=== PATIENT | female | born 1960 | race Two or more races ===

== ENCOUNTER 2021-02-25 12:40 | Outpatient (REF) | payer OTHER, SELFPAY ==
--- NOTE | ~2021-02-25 | XR_ITS ---
EXAMINATION: XR HAND, RIGHT CLINICAL INFORMATION: Pain right hand. COMPARISON: None TECHNIQUE: PA, lateral, and oblique views of the right hand. FINDINGS: There is loss of PIP and DIP joint space all digits there is mild osteopenia. No acute fracture, dislocation or lytic process seen. The soft tissues are normal. XR/XR hand RT 2V IMPRESSION: Mild degenerative changes PIP and DIP joints of digits. No visible acute fracture or dislocation seen. There is diffuse osteopenia.
== END 2021-02-25 12:41 | disposition home or self-care (01) ==
LOC: HO.XRAY 12:40
PROVIDERS: PCP Internal Medicine; Visit Provider Internal Medicine
DX: M79.641 Pain in right hand (principal)
CPT/HCPCS: 73120

== ENCOUNTER 2021-07-30 08:49 | Emergency (ER) | payer OTHER, SELFPAY ==
--- NOTE | ~2021-07-30 | US_ITS ---
EXAMINATION: US ABDOMEN LIMITED CLINICAL INFORMATION: Right upper quadrant pain. COMPARISON: CT same day TECHNIQUE: Real-time imaging of the right upper quadrant abdominal viscera. FINDINGS: PANCREAS: The visualized portion of the pancreas head and body are normal, portion of the pancreatic body and tail, not visualized are obscured by bowel gas. LIVER: Normal. The liver is normal in size. The liver contour is normal. Parenchymal echogenicity is normal. No focal hepatic lesion. There is no intrahepatic biliary duct dilatation seen. GALLBLADDER: Physiologically distended The gallbladder is physiologically distended without evidence of stones, sludge, polyps, wall thickening or pericholecystic fluid. COMMON BILE DUCT: Normal in caliber measuring 0.2 cm in diameter. RIGHT KIDNEY: Normal. No hydronephrosis. No renal calculi or focal parenchymal lesions. The kidney measures 8.7 cm in maximum dimension. FREE FLUID: None. US/US abdomen limited IMPRESSION: Distended gallbladder probably physiologic, No ultrasound evidence of gallbladder disease or gallstones.
--- NOTE | ~2021-07-30 | CT_ITS ---
EXAMINATION: CT abdomen pelvis w con CLINICAL INFORMATION: Abdominal pain COMPARISON: No prior CT available for comparison. TECHNIQUE: Multidetector volumetric imaging was performed from the superior aspect of the liver through the pubic symphysis 85 mL Omnipaque 350 injected Sagittal and coronal reformatted images were obtained on the technologist's workstation. This CT examination was performed using dose optimization techniques as appropriate, variously including the following: *Automated exposure control *Adjustment of mA and/or kV according to patient size (this includes techniques or standardized protocols for targeted exams where dose is matched to indication/reason for exam; i.e. extremities or head) *Use of iterative reconstruction technique DLP: 750 mGy-cm FINDINGS: LOWER THORAX: Lung bases are clear. HEPATOBILIARY: No focal hepatic lesions. No biliary ductal dilatation. GALLBLADDER: Distended gallbladder SPLEEN: Spleen is normal in size. PANCREAS: No focal mass or ductal dilatation. STOMACH AND GASTROINTESTINAL TRACT: Stomach is grossly unremarkable. There is no bowel distention or thickening. No CT evidence of appendicitis. ADRENALS: No adrenal nodules. KIDNEYS/URETERS: No hydronephrosis, stones or solid mass lesions. URINARY BLADDER: Partially decompressed. PELVIC VISCERA: Unremarkable PERITONEUM: No free air or fluid. LYMPH NODES: No lymphadenopathy. VASCULAR:Abdominal aorta normal in size, no aneurysm found. BONES, ABDOMINAL WALL AND SOFT TISSUES: Age-appropriate changes of the spine and skeletal system, no destructive osteolytic or osteosclerotic bone lesion found CT/CT abdomen pelvis w con IMPRESSION: No CT explanation for patient's pain symptoms, no evidence of bowel obstruction, no free air or fluid. No CT evidence of appendicitis. Gallbladder is distended. If there is a clinical suspicion may consider correlation with ultrasound.
[2021-07-30 08:56] VITALS: BP 170/102; PULSE 94; O2SAT 100
--- NOTE | 2021-07-30 08:59 | ED_ITS ---
HPI - Abdominal Pain General Chief Complaint: Abdominal Pain Stated Complaint: llq abd pain n/v Time Seen by Provider: 07/30/21 08:50 Source: patient Mode of arrival: ambulatory Limitations: no limitations History of Present Illness HPI narrative: This is a 60-year-old female past medical history significant for GERD, hypertension, vitamin-D deficiency, iron deficiency anemia presenting to the emergency department with complaints of abdominal pain since last night. Patient tells me that she has been having severe abdominal pain since yesterday night, she tells me that she vomited twice after trying to drink water. She tells me that the abdominal pain is severe, constant and stabbing in nature. She tells me it is diffuse, but worse in the right lower quadrant. She tells me she has been unable to eat food because she has no access to food. She tells me she is homeless and living on the streets. She is tearful, and very anxious upon her arrival. She was brought in by ambulance to report that they found her at [facility]. Denies chest pain, shortness of breath, headache, diarrhea, constipation, weakness, fevers and chills. MD elicited complaint: abdominal pain Pertinent past history: none Onset (ago): day(s) (1) Pain Consistency: constant Location: diffuse Severity: severe Quality: stabbing Radiation: none Migration to: no migration Exacerbating factors: nothing Relieving factors: nothing Associated symptoms: nausea and vomiting Related Data Previous Rx's Medication Instructions Recorded cholecalciferol (vitamin D3) 25 25 mcg PO DAILY 90 Days #90 cap 05/21/20 mcg (1,000 unit) capsule triamcinolone acetonide 0.1 % 1 appl TOPICAL DAILY 30 Days #30 g 03/21/21 topical cream acetaminophen 650 mg 650 mg PO Q8H PRN 30 Days #90 tab 07/09/21 tablet,extended release (Mapap Arthritis Pain) lisinopril 10 mg tablet 10 mg PO DAILY 90 Days #90 tab 07/09/21 omeprazole 20 mg capsule,delayed 20 mg PO DAILY 90 Days #90 cap 07/09/21 release tizanidine 4 mg tablet 4 mg PO TID PRN 30 Days #90 tab 07/09/21 Allergies Allergy/AdvReac Type Severity Reaction Status Date / Time aspirin Allergy Gastrointestinal Verified 07/30/21 09:22 Upset Review of Systems Review of Systems Constitutional : No Weight loss, No Fever, No Chills ENT/Mouth :? No sore throat, No Rhinorrhea Eyes: No Swelling, No Redness Cardiovascular : No Chest Pain, No SOB, NoEdema Respiratory : No Cough, No Sputum, No Wheezing Gastrointestinal : Positive Nausea, Positive Vomiting, No Diarrhea, positive abdominal Pain, No Hematochezia, No Melena Genitourinary : No Dysuria, No Urinary Frequency, No Hematuria, No Urgency Musculoskeletal : No joint pain, No Myalgias, No Joint Swelling Skin : No Skin Lesions, No rash Neuro : No Weakness, No Numbness, No Dizziness, No Headache Psych : No Anxiety/Panic, No Depression Heme/Lymph: No Bruising, No Lymphadenopathy Endocrine : No Polyuria, No Polydipsia All other systems reviewed and are negative. Yes all other systems are reviewed and are negative Physical Exam Vital Signs: Vital Signs: Last Vital Signs Temp 97.9 F 07/30/21 09:17 Pulse 90 07/30/21 09:17 Resp 22 H 07/30/21 09:17 BP 177/84 H 07/30/21 09:17 Pulse Ox 97 07/30/21 09:17 BMI result Body Mass Index 27.1 VSS Appearance: Alert.? Oriented X3.? No acute distress.?+ patient tearful and anxious. Head: Normocephalic, atraumatic, no step-offs or deformities Eyes: Pupils equal, round and reactive to light.? ENT: Pharynx normal.? Neck: Normal inspection.? Neck supple.? CVS: Normal heart rate and rhythm.? Pulses normal.? Respiratory: No respiratory distress.? Breath sounds normal.? Abdomen: Soft and +diffuse tenderness on palpation.? Skin: Skin warm and dry.? Normal skin color.? Normal skin turgor.? Extremities: No lower extremity edema.? No calf ttp. 5/5 strength to bilateral upper and lower extremities Back: No midline tenderness, no C-spine tenderness, full range of motion, no CVA tenderness bilaterally Neuro: Oriented X 3.? No motor deficit.? No sensory deficit. Course Reevaluation(s) Reevaluation #1: Elevated white blood cell count likely reactive secondary to vomiting and dry heaving. No acute electrolyte abnormalities. COVID negative. Urine clean. CT scan could not find a reason for patient's symptoms, gallbladd er noted to be slightly thickened. Ultrasound of the right upper quadrant was ordered, which shows a thickened gallbladder, without stones. Unlikely causing patient's symptoms. Upon re-evaluation, patient is feeling much better. She is able to tolerate solids, and liquids. Zofran and fluids helped. Patient tells me she is feeling much better. At this time I feel comfortable with discharge h ome. Patient's vital signs are stable. I have advised her to return with new or worsening symptoms. Time: 14:24 MDM - Abdominal Pain MDM Narrative Medical decision making narrative: 900 60 homeless F pmhx GERD, HTN,anemia presents to ED w/ complaints of sever abdominal pain since last night, also reports vomiting X2. She denies SOB and CP. Physical examination significant for a tearful, anxious female lying on the exam table,, regular rate and rhythm, lungs clear. Diffusely tender abdomen upon palpation with normoactive bowel sounds, no distention. Plan at this time is to obtain basic labs, CT of the abdomen and pelvis, urine, and EKG Medical Records Attestation: I reviewed the patient's medical records. Lab Data Attestation: I reviewed the patient's lab results. Result diagrams: 07/30/21 09:11 07/30/21 09:11 Labs: Lab Results 07/30/21 07/30/21 07/30/21 Range/Units 09:11 09:11 09:12 WBC 11.4 H (4.8-10.8) X10*3/uL RBC 3.51 L (4.20-5.50) X10*6/uL Hgb 12.6 (12.0-16.0) g/dl Hct 36.5 L (37.0-47.0) % MCV 104.0 H (80.0-98.0) fL MCH 35.9 H (27.0-33.0) pg MCHC 34.5 (31.0-35.0) g/dl RDW 13.4 (11.0-16.0) % Plt Count 196 (160-400) X10*3/uL MPV 10.4 (9.4-12.3) fL Immature Gran % (Auto) 0.4 (0.0-0.4) % Neut % (Auto) 83.0 H (45-73) % Lymph % (Auto) 10.3 L (20-40) % [place] % (Auto) 6.0 (2-11) % Eos % (Auto) 0.0 (0-4) % Baso % (Auto) 0.3 (0-2) % Lymph # (Auto) 1.2 (1.2-4.9) X10*3/uL [place] # (Auto) 0.7 (0.1-1.2) X10*3/uL Eos # (Auto) 0.0 (0.0-0.4) X10*3/uL Baso # (Auto) 0.0 (0.0-0.2) X10*3/uL Abs Immat Gran (auto) 0.04 H (0.00-0.03) X10*3/uL Absolute Neuts (auto) 9.5 H (2.0-8.3) x10*3/uL Absolute Nucleated RBC 0.000 (0.0-0.012) X10*3/uL Nucleated RBC % (auto) 0.0 (0.0-0.2) /100WBC Sodium 138 (135-145) mmol/L Potassium 3.7 (3.3-5.1) mmol/L Chloride 102 (96-108) mmol/L Carbon Dioxide 25 (22-29) mmol/L Anion Gap 15 (12-20) BUN 11 (9-16) mg/dL Creatinine 0.80 (0.5-1.4) mg/dL Estim Creat Clear Calc 59.4 Estimated GFR > 60 Random Glucose 104 (60-115) mg/dL Calcium 9.2 (8.4-10.2) mg/dL Magnesium 1.9 (1.6-2.6) mg/dL Total Bilirubin 1.1 H (0.0-1.0) mg/dL AST 20 (5-31) U/L ALT 12 (0-31) U/L Alkaline Phosphatase 71 (39-117) U/L Total Protein 7.1 (6.5-8.0) g/dL Albumin 4.4 (3.5-5.0) g/dL Lipase 13 (8-78) U/L Beta HCG, Quant < 2 mIU/mL Urine Color Urine Appearance Urine pH (5.0-8.0) Ur Specific [place] (1.005-1.025) Urine Protein (NEG-TRACE) MG/DL Urine Glucose (UA) (NEG) MG/DL Urine Ketones (NEG) MG/DL Urine Blood (NEG) Urine Nitrite (NEG) Ur Leukocyte Esterase (NEG) Urine RBC (0) /HPF Urine WBC (0-4) /HPF Ur Squamous Epith Cells /LPF Urine Bacteria /LPF COVID-19 (CRISTIANE) Negative (Negative) COVID-19 Clin Com See Note 07/30/21 Range/Units 11:45 WBC (4.8-10.8) X10*3/uL RBC (4.20-5.50) X10*6/uL Hgb (12.0-16.0) g/dl Hct (37.0-47.0) % MCV (80.0-98.0) fL MCH (27.0-33.0) pg MCHC (31.0-35.0) g/dl RDW (11.0-16.0) % Plt Count (160-400) X10*3/uL MPV (9.4-12.3) fL Immature Gran % (Auto) (0.0-0.4) % Neut % (Auto) (45-73) % Lymph % (Auto) (20-40) % [place] % (Auto) (2-11) % Eos % (Auto) (0-4) % Baso % (Auto) (0-2) % Lymph # (Auto) (1.2-4.9) X10*3/uL [place] # (Auto) (0.1-1.2) X10*3/uL Eos # (Auto) (0.0-0.4) X10*3/uL Baso # (Auto) (0.0-0.2) X10*3/uL Abs Immat Gran (auto) (0.00-0.03) X10*3/uL Absolute Neuts (auto) (2.0-8.3) x10*3/uL Absolute Nucleated RBC (0.0-0.012) X10*3/uL Nucleated RBC % (auto) (0.0-0.2) /100WBC Sodium (135-145) mmol/L Potassium (3.3-5.1) mmol/L Chloride (96-108) mmol/L Carbon Dioxide (22-29) mmol/L Anion Gap (12-20) BUN (9-16) mg/dL Creatinine (0.5-1.4) mg/dL Estim Creat Clear Calc Estimated GFR Random Glucose (60-115) mg/dL Calcium (8.4-10.2) mg/dL Magnesium (1.6-2.6) mg/dL Total Bilirubin (0.0-1.0) mg/dL AST (5-31) U/L ALT (0-31) U/L Alkaline Phosphatase (39-117) U/L Total Protein (6.5-8.0) g/dL Albumin (3.5-5.0) g/dL Lipase (8-78) U/L Beta HCG, Quant mIU/mL Urine Color YELLOW Urine Appearance CLEAR Urine pH 6.5 (5.0-8.0) Ur Specific [place] <= 1.005 (1.005-1.025) Urine Protein NEG (NEG-TRACE) MG/DL Urine Glucose (UA) NEG (NEG) MG/DL Urine Ketones 15 (NEG) MG/DL Urine Blood NEG (NEG) Urine Nitrite NEG (NEG) Ur Leukocyte Esterase NEG (NEG) Urine RBC 0 (0) /HPF Urine WBC 0 (0-4) /HPF Ur Squamous Epith Cells NONE /LPF Urine Bacteria NONE /LPF COVID-19 (CRISTIANE) (Negative) COVID-19 Clin Com Imaging Data CT scan - abdomen: Attestation: I personally reviewed and interpreted this imaging study as follows: Radiologist's impression: CT/CT abdomen pelvis w con IMPRESSION: No CT explanation for patient's pain symptoms, no evidence of bowel obstruction, no free air or fluid. No CT evidence of appendicitis. ? Gallbladder is distended. If there is a clinical suspicion may consider correlation with ultrasound. ECG Data Attestation: I personally reviewed and interpreted this ECG as follows: ECG interpretation date: 07/30/21 ECG interpretation time: 09:27 Prior ECG tracings: available for review Interpretation: Ventricular rate of 89, NH normal, QRS normal, QT/QTC normal. EKG shows normal sinus rhythm, no ST elevations or inversions. No acute ischemia. No significant changes when compared to EKG from October 09, 2011 Critical Care Time Critical Care Time Critical Care Time: No Discharge Plan Discharge Clinical Impression: Abdominal pain, Nausea & vomiting Patient Disposition: Home, Self-Care Instructions: Acute Nausea and Vomiting (ED), Abdominal Pain (ED) Additional Instructions: Take your medications as prescribed. If you were prescribed antibiotics today, it is important that you take your medication to their entirety, do not skip any doses, do not finish them early. Follow-up with your primary care provider this week. Return to the emergency department with new or worsening symptoms. In case of emergency call 911 Prescriptions: No Action triamcinolone acetonide 0.1 % cream 1 appl topical DAILY 30 Days Qty: 30 RF: 1 cholecalciferol (vitamin D3) 25 mcg (1,000 unit) capsule 25 mcg PO DAILY 90 Days Qty: 90 RF: 3 acetaminophen [Mapap Arthritis Pain] 650 mg tablet extended release 650 mg PO Q8H PRN (Reason: pain) 30 Days Qty: 90 RF: 3 lisinopril 10 mg tablet 10 mg PO DAILY 90 Days Qty: 90 RF: 1 omeprazole 20 mg capsule,delayed release(DR/EC) 20 mg PO DAILY 90 Days Qty: 90 RF: 3 tizanidine 4 mg tablet 4 mg PO TID PRN (Reason: muscle spasticity) 30 Days Qty: 90 RF: 0 Referrals: Jeni Berg MD [Primary Care Provider] - 2 days [facility] Past Medical History Attestation statement: The following information was validated with the patient. Source: old records reviewed and nursing notes reviewed Medical History (Updated 07/30/21 @ 14:25 by HAMILTON Rahman) GERD (gastroesophageal reflux disease) Hypertension Hypovitaminosis D Iron deficiency anemia Osteopenia Right hand pain Surgical History History of total abdominal hysterectomy Family History Family History Father No problems noted. Mother Breast cancer Diabetes Brother Myocardial infarction Social History Social History (Updated 11/23/20 @ 14:11 by Jeni Estrada MD) Housing: Apartment Alcohol intake: current Alcohol intake frequency: 3 or more drinks per day Alcohol type: beer Patient Tobacco Use Status: Current everyday Tobacco user Tobacco use type: Cigarette Cigarettes Per Day: 1 e-Cigarette/Vaping Use: Never Used Second Hand Smoke Exposure: No Advance Directives: No Advance Directives Information Provided: Yes Current occupational status: unemployed
--- NOTE | 2021-07-30 09:03 | ECG_ITS ---
Test Reason : abdominal pain Blood Pressure : / mmHG Vent. Rate : 089 BPM Atrial Rate : 089 BPM P-R Int : 136 ms QRS Dur : 076 ms QT Int : 364 ms P-R-T Axes : 054 064 052 degrees QTc Int : 442 ms Normal sinus rhythm Normal ECG When compared with ECG of 09-OCT-2011 09:10, No significant change was found Referred By: Froilan Cui Electronically Signed By:Shad Basilio
[2021-07-30] MEDS: 0.9 % Sodium Chloride 1,000 ML 999 ML IV (09:13)
[2021-07-30] MEDS: ondansetron HCL 4 MG/2 ML VIAL IVPUSH (09:16)
[2021-07-30 09:17] VITALS: BP 177/84; PULSE 90; RESP 22; TEMP 36.6; O2SAT 97; BMI 27.1
[2021-07-30 09:18] LABS: MANUAL DIFF FLAG NO
[2021-07-30 09:20] LABS: Basophils Percent Auto 0.3 % (0-2); Hematocrit 36.5 % (37.0-47.0); Hemoglobin 12.6 g/dl (12.0-16.0); Imm Gran Abs Auto 0.04 X10*3/uL (0.00-0.03); Imm Gran Pct Auto 0.4 % (0.0-0.4); Lymphocytes Absolute Auto 1.2 X10*3/uL (1.2-4.9); Lymphocytes Percent Auto 10.3 % (20-40); Mean Corpuscular HGB Conc 34.5 g/dl (31.0-35.0); Mean Corpuscular Hemoglobin 35.9 pg (27.0-33.0); Mean Platelet Volume 10.4 fL (9.4-12.3); Monocytes Absolute Auto 0.7 X10*3/uL (0.1-1.2); Neutrophils Absolute Auto 9.5 x10*3/uL (2.0-8.3); Platelet Count 196 X10*3/uL (160-400); Red Blood Count 3.51 X10*6/uL (4.20-5.50); Red Cell Distribution Width 13.4 % (11.0-16.0); White Blood Count 11.4 X10*3/uL (4.8-10.8)
--- NOTE | 2021-07-30 09:24 | PC.NURSE ---
Pt received: Pt AOX4 with noted anxiety and nervousness. Amharic speaker only. Heart sounds normal and lungs clear. Pt abd soft with tenderness to mid and LLQ. Pt denies any fever or dysuria.
[2021-07-30 09:35] LABS: Alanine Aminotransferase 12 U/L (0-31); Albumin Level 4.4 g/dL (3.5-5.0); Alkaline Phosphatase 71 U/L (39-117); Anion Gap 15 (12-20); Aspartate Amino Transferase 20 U/L (5-31); Bilirubin Total 1.1 mg/dL (0.0-1.0); Blood Urea Nitrogen 11 mg/dL (9-16); Calcium 9.2 mg/dL (8.4-10.2); Carbon Dioxide 25 mmol/L (22-29); Chloride 102 mmol/L (96-108); Creatinine Clr Calc Pharmacy 59.4; Estimated Glomerular Filt Rate > 60; Glucose Random 104 mg/dL (60-115); Lipase 13 U/L (8-78); Magnesium 1.9 mg/dL (1.6-2.6); Potassium 3.7 mmol/L (3.3-5.1); Sodium 138 mmol/L (135-145); Total Protein 7.1 g/dL (6.5-8.0)
[2021-07-30 09:42] LABS: COVID-19 Test Negative (Negative)
--- NOTE | 2021-07-30 09:48 | PC.NURSE ---
Pt's son Marin: [phone] Pt lives at home with
--- NOTE | 2021-07-30 10:01 | PC.NURSE ---
pt to CT with con
[2021-07-30 10:21] LABS: HCG Quantitative < 2 mIU/mL
[2021-07-30] MEDS: iohexoL 350 MG/ML 100 ML INFUS..BTL IV (10:33)
[2021-07-30 11:52] LABS: Appearance Urine CLEAR; Color Urine YELLOW; Glucose Urine UA NEG (NEG); Leukocyte Esterase Urine NEG (NEG); Nitrite Urine NEG (NEG); PH 6.5 (5.0-8.0); Specific Gravity - Urine <= 1.005 (1.005-1.025); Urine Blood NEG (NEG); Urine Ketones 15 MG/DL (NEG); Urine Protein NEG (NEG-TRACE)
[2021-07-30 11:57] LABS: RBC Urine 0 /HPF (0); WBC Urine 0 /HPF (0-4)
== END 2021-07-30 15:00 | disposition home or self-care (01) ==
PROVIDERS: Physician Assistant; Emergency Provider Emergency Medicine; PCP Internal Medicine
DX: R10.9 Unspecified abdominal pain (principal); R11.2 Nausea with vomiting, unspecified; Z20.822 Contact with and (suspected) exposure to COVID-19; I10 Essential (primary) hypertension; F17.200 Nicotine dependence, unspecified, uncomplicated
CPT/HCPCS: 36415; 74177; 76705; 80053; 81001; 83690; 83735; 84702; 85025; 87635; 93005; 96361; 96374; 99284; J2405; Q9967

== ENCOUNTER 2022-10-26 15:33 | Emergency (ER) | payer OTHER, SELFPAY ==
[2022-10-26 15:45] VITALS: BP 176/124; BP 181/99; PULSE 108; RESP 18; TEMP 36.6; O2SAT 96; BMI 29.2
--- NOTE | 2022-10-26 16:02 | PC.NURSE ---
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
--- NOTE | 2022-10-26 16:44 | PC.NURSE ---
Verified with patient if it was ok spoke with patients son Chadwick Funes and updated him with plan of care
--- NOTE | 2022-10-26 16:51 | PC.NURSE ---
Patient sleeping maintaining airway and SPO2 will CTM
--- NOTE | 2022-10-26 17:32 | ED_ITS ---
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 Patient was apparently found in a lawn chair unresponsive. She was given Narcan 6 mg nasally and reportedly responded and arrives to the ER awake, alert and oriented. The patient states that she was drinking alcohol but does not use opiates or any other kind of drugs. At the time my evaluation she has no complaints She also states that she is not prescribed any narcotics for an accidental overdose. Related Data Previous Rx's Medication Instructions Recorded cholecalciferol (vitamin D3) 25 25 mcg PO DAILY 90 days #90 caps 05/21/20 mcg (1,000 unit) capsule triamcinolone acetonide 0.1 % 1 appl topical DAILY 30 days #30 03/21/21 topical cream grams acetaminophen 650 mg 650 mg PO Q8H PRN pain 30 days #90 07/09/21 tablet,extended release (Mapap tabs Arthritis Pain) lisinopril 10 mg tablet 10 mg PO DAILY 90 days #90 tabs 07/09/21 omeprazole 20 mg capsule,delayed 20 mg PO DAILY 90 days #90 caps 07/09/21 release tizanidine 4 mg tablet 4 mg PO TID PRN muscle spasticity 07/09/21 30 days #90 tabs Allergies Allergy/AdvReac Type Severity Reaction Status Date / Time aspirin Allergy Gastrointestinal Verified 07/30/21 09:22 Upset Review of Systems Constitutional: Constitutional: Reports as per HPI, Denies chills, Denies fatigue, Denies fever(s) and Denies headache(s) ENT: Denies headache(s) Cardiovascular: Cardiovascular: Denies chest pain and Denies dyspnea Respiratory: Respiratory: Denies cough and Denies dyspnea Gastrointestinal: Gastrointestinal: Denies abdominal pain, Denies constipation and Denies vomiting Genitourinary: Genitourinary: Denies dysuria Neurologic: Denies headache(s) and Denies focal weakness Endocrine: Endocrine: Denies fatigue [facility] Past Medical History Medical History (Updated 10/27/22 @ 00:01 by Background Daemon) GERD (gastroesophageal reflux disease) Hypertension Hypovitaminosis D Iron deficiency anemia Osteopenia Right hand pain Surgical History History of total abdominal hysterectomy Family History Family History Father No problems noted. Mother Breast cancer Diabetes Brother Myocardial infarction Social History Social History (Updated 11/23/20 @ 14:11 by Jeni Estrada MD) Housing: Apartment Alcohol intake: current Alcohol intake frequency: 3 or more drinks per day Alcohol type: beer Patient Tobacco Use Status: Current everyday Tobacco user Tobacco use type: Cigarette Cigarettes Per Day: 1 e-Cigarette/Vaping Use: Never Used Second Hand Smoke Exposure: No Advance Directives: No Advance Directives Information Provided: No Current occupational status: unemployed Physical Exam ED Vital Signs: Vital Signs - 24 hr 10/26/22 15:45 10/26/22 17:33 Temperature 97.9 F 98.1 F Pulse Rate 108 H 84 Respiratory Rate 18 14 Blood Pressure 181/99 H 157/94 H Pulse Oximetry 96 99 Oxygen Delivery Method Room Air Room Air BMI result Body Mass Index 29.2 Const General: healthy appearing, comfortable, no acute distress, alert and awake Nutritional Appearance: well nourished Orientation/consciousness: patient oriented x3 HENMT Head: Yes normocephalic and Yes atraumatic Throat: Yes posterior oropharynx normal Eyes Eyelids: Yes eyelids normal Conjunctivae: conjunctivae normal Sclerae: sclerae normal Corneas: corneas normal Pupils: Equal, round and reactive pupils present EOM: EOMs intact bilaterally Neck Neck: Yes full ROM Resp Effort & Inspection: normal respiratory effort, able to speak in complete sente nces, no audible wheezes and not labored Auscultation: clear to auscultation bilaterally Cardio Rate: regular rate Rhythm: regular rhythm GI Inspection: No distended Palpation (GI): Soft to palpation, not firm, nontender, no guarding and not rigid Auscultation: normoactive bowel sounds Skin General skin exam: no rashes or lesions noted and elasticity normal Neuro General: patient oriented x3 Cranial nerves: Yes CN's II-XII intact bilaterally, Yes Equal, round and reactive pupils present and Yes Bilaterally intact EOM present Cognition (Neuro): normal cognition Extrem Other: Moving all extremities well without any obvious deformities Medical Decision Making Medical Decision Making MDM Narrative: Patient is wide awake, alert oriented. She is answering questions and responding to commands appropriately. She is neurologically intact without deficit. She has required no further Narcan. Vital signs have normalized without intervention. She was initially slightly hypertensive and tachycardic on arrival. She was also quite hysterical on arrival. The patient vehemently denies any opiate abuse in her prescription monitoring program confirms that she is not prescribed any opiates. I offered to get a drug screen to see if there are any opiates in the patient's system though she responded to the Narcan she likely had an external overdose. The patient declines to provide a urine sample and would like to be discharged into the care of her boyfriend. She has been the ER for approximately 2 hours and is stable for discharge at this time. Lungs are clear to auscultation the patient denies any shortness of breath or coughing. IV low suspicion for aspiration Differential Diagnosis Substance abuse Polysubstance abuse Acute alcohol intoxication Accidental overdose CVA less likely Discharge Plan Discharge Clinical Impression: Opioid abuse Patient Disposition: Home, Self-Care Instructions: Opioid Use Disorder (ED) Additional Instructions: He responded to a medication that reverses opiates after being found unresponsive. This indicates that there likely opiates in your system. If you're drinking alcohol, drink in moderation and avoid, coingestion of opiates Prescriptions: No Action triamcinolone acetonide 0.1 % cream 1 appl topical DAILY 30 Days Qty: 30 1RF cholecalciferol (vitamin D3) 25 mcg (1,000 unit) capsule 25 mcg PO DAILY 90 Days Qty: 90 3RF acetaminophen [Mapap Arthritis Pain] 650 mg tablet extended release 650 mg PO Q8H PRN (Reason: pain) 30 Days Qty: 90 3RF lisinopril 10 mg tablet 10 mg PO DAILY 90 Days Qty: 90 1RF omeprazole 20 mg capsule,delayed release(DR/EC) 20 mg PO DAILY 90 Days Qty: 90 3RF tizanidine 4 mg tablet 4 mg PO TID PRN (Reason: muscle spasticity) 30 Days Qty: 90 0RF Interventions: [place]-Suicide Risk Severity Scale Last Done: 10/26/22 18:27 ED Discharge Assessment Last Done: 10/26/22 17:49 Discharge Date/Time: 10/26/22 18:27
[2022-10-26 17:33] VITALS: BP 157/94; PULSE 84; RESP 14; TEMP 36.7; O2SAT 99
== END 2022-10-26 18:27 | disposition home or self-care (01) ==
PROVIDERS: Emergency Provider Emergency Medicine; PCP Internal Medicine
DX: F11.10 Opioid abuse, uncomplicated (principal); I10 Essential (primary) hypertension; F17.210 Nicotine dependence, cigarettes, uncomplicated; Z71.6 Tobacco abuse counseling; Z79.899 Other long term (current) drug therapy
CPT/HCPCS: 99283; 99284

== ENCOUNTER 2023-03-27 14:52 | Outpatient (AMB) | payer OTHER, SELFPAY ==
[2023-03-27 14:57] VITALS: BP 142/100; BMI 24.4
--- NOTE | 2023-03-27 14:57 | MHC.PC.OV ---
Vital Signs 03/27/23 14:57 03/27/23 15:30 Height 5 ft 3 in Weight 138 lb BMI 24.4 BP 142/100 H 140/100 H Blood Pressure Location Lt brachial Lt brachial Position Sitting Sitting Intake Visit Reasons: F/u HTN, GERD Intake Note: Patient here for follow up HTN, GERD, c/o hemorrhoids, dizziness, abdominal discomfort, migraines, asthma [place] Supervisor Required: No Accompanied by: Self / Same As Patient Allergies aspirin Allergy (Verified 03/27/23 15:11) Gastrointestinal Upset Medication List - Last Reconciled 03/27/23 by Jeni Estrada MD blood pressure monitor (Blood Pressure Kit) As directed cholecalciferol (vitamin D3) 25 mcg PO DAILY 90 days lisinopril 10 mg PO DAILY 90 days omeprazole 20 mg PO DAILY 90 days tizanidine 2 mg PO Q8H PRN Tobacco use date assessed: 11/22/22 Dental Screening Dental Screen Date: 03/27/23 Did you have a dental visit in the last 12 months?: No Did you have a dental problem in the last 6 months where you did not have access to dental care?: No Was dental information given to patient?: Patient has dentist HPI HPI Comments History of Present Illness Details This is a 62-year-old female with GERD, hypertension, asthma and low vitamin-D that comes today for follow-up on her conditions. GERD was stable with PPIs but she ran out of medication. Blood pressure elevated and she has been out of lisinopril for over 2 weeks. She use rescue inhaler about once a month. Has history of low vitamin-D and vitamin-D levels will be order. No chest pain or shortness of breath. [facility] Medical History GERD (gastroesophageal reflux disease) Hypertension Hypovitaminosis D Iron deficiency anemia Osteopenia Right hand pain Surgical History History of total abdominal hysterectomy Family History (Updated 03/27/23 @ 15:16 by Jeni Estrada MD) Father Prostate cancer Mother Breast cancer Diabetes Stroke Brother Myocardial infarction Daughter AIDS Social History (Updated 03/27/23 @ 15:17 by Jeni Estrada MD) Housing: Apartment Alcohol intake: current Alcohol intake frequency: a few times a week Alcohol type: beer Patient Tobacco Use Status: Current someday Tobacco user Tobacco use type: Cigarette Cigarettes Per Day: 1 e-Cigarette/Vaping Use: Never Used Second Hand Smoke Exposure: No service: No Current occupational status: unemployed Cognitive needs: No Hearing needs: No Vision needs: No Questionnaire Thrive Questionnaire Date Thrive assessed: 11/22/22 NEIDA-7 AMB Questionnaire NEIDA-7 Date NEIDA - 7 assessed: 11/22/22 Source: Developed by Drs. Omar Muro, Yohana Massey, Panda Michelle and colleagues, with an educational elza from [employer]. Review of Systems Const All systems reviewed & are unremarkable except as noted in HPI and below Eyes Reports no additional complaints, Denies change in vision and Denies other visual disturbances Card Denies chest pain at rest, Denies chest pain with activity, Denies edema, Denies irregular heart rhythm, Denies claudication, Denies dyspnea, Denies dyspnea on exertion, Denies orthopnea, Denies paroxysmal nocturnal dyspnea and Denies slow heart rate Resp Denies cough, Denies dyspnea and Denies dyspnea on exertion GI Denies abdominal pain, Denies change in bowel habits, Denies excessive flatus, Denies nausea and Denies vomiting Denies urinary incontinence, Denies urinary hesitancy and Denies urinary urgency Musc Denies abnormal gait, Denies atrophy, Denies deformity and Denies limited range of motion Skin/Breast Denies bleeding lesions, Denies changing lesions and Denies rash Neuro Denies abnormal gait and Denies lack of coordination Physical exam (Primary Care) Vital Signs: Last Vital Signs BP 142/100 H 03/27/23 14:57 BMI result Body Mass Index 24.4 Tobacco/Smoking Status: Tobacco use Status Tobacco use date assessed 11/22/22 03/27/23 15:04 Patient Tobacco Use Status Current someday Tobacco 03/27/23 15:04 Tobacco use type Cigarette 03/27/23 15:04 e-Cigarette/Vaping Use Never Used 03/27/23 15:04 Thrive Assessment: Date of Thrive Assessment Date Thrive assessed 11/22/22 03/27/23 15:04 Eyes General: appearance normal, both eyes and all related structures Eyelids: Yes eyelids normal Conjunctivae: conjunctivae normal Neck Neck: Yes normal visual inspection and Yes supple Resp Effort & Inspection: normal respiratory effort Auscultation: clear to auscultation bilaterally Cardio Jugular venous distension: no JVD Rate: regular rate Rhythm: regular rhythm Heart sounds: S1 normal heart sound present and S2 normal heart sound present Extrem General: Yes full ROM Assessment and Plan Assessment & Plan (1) Asthma: Code(s): J45.909 - Unspecified asthma, uncomplicated Plan: Use rescue inhaler as needed. (2) GERD (gastroesophageal reflux disease): Code(s): K21.9 - Gastro-esophageal reflux disease without esophagitis Plan: Restart PPIs. (3) Hypertension: Code(s): I10 - Essential (primary) hypertension Plan: Restart lisinopril. Blood pressure goal is equal or less than 130/80. (4) Hypovitaminosis D: Code(s): E55.9 - Vitamin D deficiency, unspecified Plan: Restart vitamin-D. Orders: Orders MM screening mammo BI Today Z12.31 - Encounter for screening mammogram for malignant neoplasm of breast Hepatitis C Antibody Today Z11.59 - Encounter for screening for other viral diseases HIV Ab/Ag Today Z53.20 - Procedure and treatment not carried out because of patient's decision for unspecified reasons Comprehensive [place]. Panel Fast Today I10 - Essential (primary) hypertension Lipid Panel Today I10 - Essential (primary) hypertension Vitamin D 25-OH Total Today E55.9 - Vitamin D deficiency, unspecified Medications: Refilled cholecalciferol (vitamin D3) 25 mcg PO DAILY 90 days 90 caps 3RF lisinopril 10 mg PO DAILY 90 days 90 tabs 1RF omeprazole 20 mg PO DAILY 90 days 90 caps 1RF Coding Level of Care Code Est Pt Level 4 (79786) Diagnoses Asthma J45.909 GERD (gastroesophageal reflux disease) K21.9 Hypertension I10 Hypovitaminosis D E55.9 Time Spent (min) 22
[2023-03-27 15:30] VITALS: BP 140/100
== END 2023-03-27 15:41 | disposition home or self-care (01) ==
PROVIDERS: Visit Provider Internal Medicine
DX: J45.909 Unspecified asthma, uncomplicated (principal); K21.9 Gastro-esophageal reflux disease without esophagitis; I10 Essential (primary) hypertension; E55.9 Vitamin D deficiency, unspecified
CPT/HCPCS: 99214

== ENCOUNTER 2023-12-12 14:27 | Emergency (ER) | payer OTHER, SELFPAY ==
[2023-12-12 14:57] VITALS: BP 160/82; PULSE 70; RESP 18; TEMP 35.9; O2SAT 99; BMI 32.8
--- NOTE | 2023-12-12 20:27 | ED.GENADULT ---
HPI - General Adult General Chief complaint: Allergic Reaction Stated complaint: Rash All Over Body History of Present Illness HPI narrative: Left without completion of treatment Related Data Previous Rx's ?Medication ?Instructions ?Recorded blood pressure monitor (Blood #1 ea 11/22/22 Pressure Kit) tizanidine 2 mg tablet 2 mg PO Q8H PRN muscle spasticity 12/27/22 #14 tabs Ventolin HFA 90 mcg/actuation 2 puff inhalation Q6H PRN 03/27/23 aerosol inhaler (albuterol sulfate) shortness of breath or wheezing 30 days #8 grams cholecalciferol (vitamin D3) 25 25 mcg PO DAILY 90 days #90 caps 03/27/23 mcg (1,000 unit) capsule lisinopril 10 mg tablet 10 mg PO DAILY 90 days #90 tabs 03/27/23 omeprazole 20 mg capsule,delayed 20 mg PO DAILY 90 days #90 caps 03/27/23 release diphenhydramine HCl 25 mg capsule 25 mg PO TID PRN allergic reaction 12/12/23 (Benadryl) 7 days #21 caps famotidine 20 mg tablet (Pepcid) 20 mg PO BID 7 days #14 tabs 12/12/23 prednisone 20 mg tablet 40 mg (2 x 20 mg) PO DAILY 5 days 12/12/23 #10 tabs Allergies Allergy/AdvReac Type Severity Reaction Status Date / Time aspirin Allergy Gastrointestinal Verified 12/12/23 15:03 Upset PMFSH Past Medical History Medical History GERD (gastroesophageal reflux disease) Hypertension Hypovitaminosis D Iron deficiency anemia Osteopenia Right hand pain Surgical History History of total abdominal hysterectomy Family History Family History (Updated 03/27/23 @ 15:16 by Jeni Estrada MD) Father Prostate cancer Mother Breast cancer Diabetes Stroke Brother Myocardial infarction Daughter AIDS Social History Social History (Updated 03/27/23 @ 15:17 by Jeni Estrada MD) Housing: Apartment Alcohol intake: current Alcohol intake frequency: a few times a week Alcohol type: beer Patient Tobacco Use Status: Current someday Tobacco user Tobacco use type: Cigarette Cigarettes Per Day: 1 e-Cigarette/Vaping Use: Never Used Second Hand Smoke Exposure: No Advance Directives: No Advance Directives Information Provided: No Do you have a plan to hurt others: No Plan service: No Current occupational status: unemployed Cognitive needs: No Hearing needs: No Vision needs: No Physical Exam ED Vital Signs: Vital Signs - 24 hr 12/12/23 14:57 Temperature 96.7 F L Pulse Rate 70 Respiratory Rate 18 Blood Pressure 160/82 H Pulse Oximetry 99 Oxygen Delivery Method Room Air BMI result Body Mass Index 32.8 Course Course Course Narrative: RME; triage by HAMILTON Schultz. Patient is sttes for chronic itchy rash for 1 week since starting Ambien. Patient denies any shortness of breath. Lungs were clear. Negative for swelling of lips, uvula, or face. Patient has generalized uticaria rash. Patient states also rectal bleeding states history of hemorrhoids. Not in distress. Patient informed need to be seen [facility] for rectal exam and possible labs. Patient states necessity also for allergic reaction medication. Discharge Plan Discharge Clinical Impression: Allergic reaction Patient Disposition: Left W/O Completing Treatment Additional Instructions: LEFT BEFORE COMPLETION OF TREATMENT. Prescriptions: New diphenhydramine HCl [Benadryl] 25 mg capsule 25 mg PO TID PRN (Reason: allergic reaction) 7 Days Qty: 21 0RF prednisone 20 mg tablet 40 mg PO DAILY 5 Days Qty: 10 0RF famotidine [Pepcid] 20 mg tablet 20 mg PO BID 7 Days Qty: 14 0RF No Action tizanidine 2 mg tablet 2 mg PO Q8H PRN (Reason: muscle spasticity) Qty: 14 0RF cholecalciferol (vitamin D3) 25 mcg (1,000 unit) capsule 25 mcg PO DAILY 90 Days Qty: 90 3RF lisinopril 10 mg tablet 10 mg PO DAILY 90 Days Qty: 90 1RF omeprazole 20 mg capsule,delayed release(DR/EC) 20 mg PO DAILY 90 Days Qty: 90 1RF albuterol sulfate [Ventolin HFA] 90 mcg/actuation HFA aerosol inhaler 2 puff inhalation Q6H PRN (Reason: shortness of breath or wheezing) 30 Days Qty: 8 2RF (DME) blood pressure monitor [Blood Pressure Kit] Kit See Rx Instructions .Route Qty: 1 0RF Rx Instructions: As directed Discharge Date/Time: 12/12/23 20:32
== END 2023-12-12 20:32 | disposition left against medical advice (07) ==
PROVIDERS: Emergency Provider Emergency Medicine; PCP Internal Medicine
DX: R21 Rash and other nonspecific skin eruption (principal); T78.40XA Allergy, unspecified, initial encounter; X58.XXXA Exposure to other specified factors, initial encounter
CPT/HCPCS: 99281; 99283

== ENCOUNTER 2023-12-13 08:35 | Outpatient (AMB) | payer OTHER, SELFPAY ==
--- NOTE | 2023-12-13 08:38 | MHC.PC.OV ---
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 Accompanied by: Self / Same As Patient Allergies aspirin Allergy (Verified 12/13/23 08:51) Gastrointestinal Upset Medication List - Last Reconciled 12/13/23 by Jeni Estrada MD blood pressure monitor (Blood Pressure Kit) As directed cholecalciferol (vitamin D3) 25 mcg PO DAILY 90 days diphenhydramine HCl (Benadryl) 25 mg PO TID PRN 7 days famotidine (Pepcid) 20 mg PO BID 7 days lisinopril 10 mg PO DAILY 90 days omeprazole 20 mg PO DAILY 90 days prednisone 40 mg (2 x 20 mg) PO DAILY 5 days Ventolin HFA 90 mcg/actuation (albuterol sulfate) 2 puffs inhalation Q6H PRN 30 days NS Tobacco use date assessed: 12/13/23 Dental Screening Dental Screen Date: 12/13/23 Did you have a dental visit in the last 12 months?: No Did you have a dental problem in the last 6 months where you did not have access to dental care?: No Was dental information given to patient?: Patient has dentist HPI HPI Comments History of Present Illness Details This is a 63-year-old female with hypertension, GERD and low vitamin-D that complains of a diffuse maculopapular pruritic rash has been present for about 2 weeks. She still only 1 in her household that has this rash. I will prescribe prednisone and hydroxyzine for the itchiness. Blood pressure elevated but she has been out of lisinopril. Blood pressure will be recheck in 3 weeks by nurse navigator. GERD stable with PPIs. On vitamin-D supplements for her low vitamin-D. [facility] Medical History (Updated 12/13/23 @ 09:20 by Jeni Estrada MD) Osteopenia GERD (gastroesophageal reflux disease) Hypertension Hypovitaminosis D Iron deficiency anemia Right hand pain Surgical History History of total abdominal hysterectomy Family History Father Prostate cancer Mother Breast cancer Diabetes Stroke Brother Myocardial infarction Daughter AIDS Social History Housing: Apartment Alcohol intake: current Alcohol intake frequency: a few times a week Alcohol type: beer Patient Tobacco Use Status: Current someday Tobacco user Tobacco use type: Cigarette Cigarettes Per Day: 1 e-Cigarette/Vaping Use: Never Used Second Hand Smoke Exposure: No service: No Current occupational status: unemployed Cognitive needs: No Hearing needs: No Vision needs: No Questionnaire PHQ-9 Over the last 2 weeks, how often have you been bothered by any of the following problems? 1. Little interest or pleasure in doing things: more than half the days 2. Feeling down, depressed, or hopeless: more than half the days 3. Trouble falling or staying asleep, or sleeping too much: more than half the days 4. Feeling tired or having little energy: nearly every day 5. Poor appetite or overeating: several days 6. Feeling bad about yourself - or that you are a failure or have let yourself or your family down: several days 7. Trouble concentrating on things, such as reading the newspaper or watching television: several days 8. Moving or speaking so slowly that other people could have noticed. Or the opposite - being so fidgety or restless that you have been moving around a lot more than usual: not at all 9. Thoughts that you would be better off or of hurting yourself in some way: several days Total score: 13 Depression Screening Interpretation: Positive Depression Screening Follow-up: Existing condition and Community Mental Health Worker F/U Depression Screening Done: Yes 47643 - PHQ-9 Billing: Yes Source: Developed by Drs. Omar Muro, Yohana Massey, Panda Michelle and colleagues, with an educational elza from [employer]. Thrive Questionnaire Date Thrive assessed: 12/13/23 I am a: Patient What is your living situation today?: I have a steady place to live Within the past 12 months, did the food you bought not last and you didn't have the money to get more?: Never true Within the past 12 months, did you worry whether your food would run out before you got money to buy more?: Never true Do you have trouble paying for medicines?: No Do you have trouble getting transportation to medical appointments?: No Do you have trouble paying your heating and electricity bill?: No Do you have trouble taking care of your child, family member or friend?: No Do you have trouble with day-to-day activities such as bathing, preparing meals, shopping, managing finances, etc.?: No Are you currently unemployed and looking for a job?: No Are you interested in more education?: No Please select the resources that you would like help with: None Currently or been in a relationship where the following occur: no concerns reported THRIVE Score: 0 AUDIT C Alcohol Use Questionnaire (AUDIT-C) 1. How often do you have a drink containing alcohol?: 2-3 times a week 2. How many drinks containing alcohol do you have on a typical day when you are drinking?: 3 or 4 Total Score: 4 NEIDA-7 AMB Questionnaire NEIDA-7 Date NEIDA - 7 assessed: 12/13/23 Feeling nervous, anxious, or on edge: 1 = Several days Not being able to stop or control worryin = Several days Worrying too much about different things: 1 = Several days Trouble relaxin = Several days Being so restless that it is hard to sit still: 0 = Not at all Becoming easily annoyed or irritable: 1 = Several days Feeling afraid as if something awful might happen: 1 = Several days Total NEIDA-7 score (0-4 normal; 5-9 mild; 10-14 moderate; 15-21 severe): 6 Source: Developed by Drs. Omar Muro, Yohana Massey, Panda Michelle and colleagues, with an educational elza from [employer]. NEIDA-7 Assessment Billing NEIDA-7 Assessment Tool: NEIDA-7 Assessment 12104 Review of Systems Const All systems reviewed & are unremarkable except as noted in HPI and below Eyes Reports no additional complaints, Denies change in vision and Denies other visual disturbances Card Denies chest pain at rest, Denies chest pain with activity, Denies edema, Denies irregular heart rhythm, Denies claudication, Denies dyspnea, Denies dyspnea on exertion, Denies orthopnea, Denies paroxysmal nocturnal dyspnea and Denies slow heart rate Resp Denies cough, Denies dyspnea and Denies dyspnea on exertion Skin/Breast Reports rash Physical exam (Primary Care) Vital Signs: Last Vital Signs BP 146/84 H 12/13/23 08:41 BMI result Body Mass Index 33.5 Tobacco/Smoking Status: Tobacco use Status Tobacco use date assessed 12/13/23 12/13/23 08:48 Patient Tobacco Use Status Current someday Tobacco 12/13/23 08:48 Tobacco use type Cigarette 12/13/23 08:48 e-Cigarette/Vaping Use Never Used 12/13/23 08:48 PHQ-9: PHQ-9 Score PHQ-9: Total score 13 12/13/23 08:55 Depression Screening Interpretation: Positive Depression Screening Follow-up: Existing condition and Community Mental Health Worker F/U Thrive Assessment: Date of Thrive Assessment Date Thrive assessed 12/13/23 12/13/23 08:48 Currently or been in a relationship where the following occur: no concerns reported Resp Effort & Inspection: normal respiratory effort Auscultation: clear to auscultation bilaterally Cardio Jugular venous distension: no JVD Rate: regular rate Rhythm: regular rhythm Heart sounds: S1 normal heart sound present and S2 normal heart sound present Skin Rashes: rashes noted maculopapular rash diffuse full body Extrem General: Yes full ROM Assessment and Plan Assessment & Plan (1) Hypertension: Code(s): I10 - Essential (primary) hypertension Plan: Restart lisinopril. Blood pressure goal is equal or less than 130/80. Recheck blood pressure with nurse navigator in 3 weeks. (2) GERD (gastroesophageal reflux disease): Code(s): K21.9 - Gastro-esophageal reflux disease without esophagitis Plan: Continue PPIs as needed. (3) Hypovitaminosis D: Code(s): E55.9 - Vitamin D deficiency, unspecified Plan: Continue vitamin-D supplements. (4) Rash: Code(s): R21 - Rash and other nonspecific skin eruption Plan: Start prednisone and hydroxyzine. Medications: New hydroxyzine HCl 25 mg PO BID PRN 60 tabs 0RF itching 30 days hydrocortisone 1% (Anti-Itch (hydrocortisone)) 1 appl topical TID PRN 28.4 grams 0RF skin irritation 2 weeks Refilled lisinopril 10 mg PO DAILY 90 tabs 1RF 90 days cholecalciferol (vitamin D3) 25 mcg PO DAILY 90 caps 3RF 90 days prednisone 40 mg (2 x 20 mg) PO DAILY 10 tabs 0RF 5 days Ventolin HFA 90 mcg/actuation (albuterol sulfate) 2 puffs inhalation Q6H PRN 8 grams 2RF shortness of breath or wheezing 30 days NS J45.909 - Unspecified asthma, uncomplicated omeprazole 20 mg PO DAILY 90 caps 1RF 90 days Coding Level of Care Code Est Pt Level 4 (18647) Diagnoses Hypertension I10 GERD (gastroesophageal reflux disease) K21.9 Hypovitaminosis D E55.9 Rash R21 Additional Codes NEIDA-7 Assessment Billing - NEIDA-7 Assessment Tool: NEIDA-7 Assessment 37966 ([id number]) Time Spent (min) 23
[2023-12-13 08:41] VITALS: BP 146/84; BMI 33.5
== END 2023-12-13 09:00 | disposition home or self-care (01) ==
PROVIDERS: PCP Internal Medicine; Visit Provider Internal Medicine
DX: I10 Essential (primary) hypertension (principal); K21.9 Gastro-esophageal reflux disease without esophagitis; E55.9 Vitamin D deficiency, unspecified; R21 Rash and other nonspecific skin eruption
CPT/HCPCS: 99214

== ENCOUNTER 2023-12-30 21:15 | Emergency (ER) | payer OTHER, SELFPAY ==
--- NOTE | 2023-12-30 | ECG_ITS ---
Test Reason : HYPERTENTION Blood Pressure : / mmHG Vent. Rate : 072 BPM Atrial Rate : 072 BPM P-R Int : 146 ms QRS Dur : 076 ms QT Int : 410 ms P-R-T Axes : 059 052 055 degrees QTc Int : 448 ms Normal sinus rhythm Normal ECG When compared with ECG of 30-JUL-2021 09:27, No significant change was found Referred By: Generic ED Physician Electronically Signed By:YUSEF MENDOZA
--- NOTE | ~2023-12-30 | CT_ITS ---
EXAMINATION: CT ABDOMEN AND PELVIS WITH CONTRAST CLINICAL INFORMATION: Right upper quadrant pain. Epigastric pain. COMPARISON: 07/30/2021 TECHNIQUE: Multidetector volumetric images were obtained from the superior aspect of the liver through the pubic symphysis following administration 85 mL of Omnipaque 350 intravenous contrast. Sagittal and coronal reformatted images were obtained on the technologist's workstation. Oral contrast: No This CT examination was performed using dose optimization techniques as appropriate, variously including the following: *Automated exposure control *Adjustment of mA and/or kV according to patient size (this includes techniques or standardized protocols for targeted exams where dose is matched to indication/reason for exam; i.e. extremities or head) *Use of iterative reconstruction technique DLP: 724 mGy-cm FINDINGS: LUNG BASES: Minimal dependent atelectasis. Small fat-containing Bochdalek hernia on the left. LIVER, GALLBLADDER, AND BILIARY TREE: The liver is normal in size, shape, and attenuation. No focal hepatic lesion or biliary ductal dilatation is present. The gallbladder is unremarkable with no evidence of radiopaque gallstones, gallbladder wall thickening, or obvious pericholecystic inflammatory changes. PANCREAS: Unremarkable. SPLEEN: Unremarkable. ADRENAL GLANDS: Unremarkable. KIDNEYS AND URETERS: There is a focal renal cortical scarring evident at both kidneys, more notably at the poles. No suspicious focal renal lesions are identified. The kidneys enhance symmetrically. A single 2.5 mm calculus is present within a calyx in the left interpolar region. No hydronephrosis or hydroureter. BLADDER: Unremarkable. GASTROINTESTINAL TRACT: Stomach, small bowel, and colon are normal in caliber. No bowel wall thickening or surrounding inflammatory changes. Appendix is normal. No intraperitoneal free fluid or free air. ABDOMINAL WALL: No significant hernia is appreciated. LYMPH NODES: Normal. VASCULAR: Mild calcific and fibrofatty atheromatous disease is present in the abdominal aorta and iliac arteries. No aneurysmal dilatation. PELVIC VISCERA: Uterus is surgically absent. No adnexal lesions. OSSEOUS STRUCTURES: There is grade 1 anterolisthesis of L4 on L5 with marked facet arthropathy. No fracture or malalignment. Mild to moderate osteoarthritis in the SI joints bilaterally and, to a lesser extent, at the hips.. CT/CT abdomen pelvis w IV con IMPRESSION: 1. No acute intra-abdominal or intrapelvic abnormalities. 2. A 2.5 mm nonobstructing left renal calculus. Fleischner guidelines were followed.
[2023-12-30 21:19] VITALS: BP 184/122; PULSE 84; O2SAT 99
[2023-12-30 21:23] VITALS: BP 181/93; PULSE 80; RESP 18; TEMP 36.8; O2SAT 97; BMI 34.4
[2023-12-30 21:55] LABS: MANUAL DIFF FLAG NO
[2023-12-30 21:56] LABS: Basophils Percent Auto 0.3 % (0-2); Eosinophils Absolute Auto 0.1 X10*3/uL (0.0-0.4); Eosinophils Percent Auto 0.8 % (0-4); Hematocrit 37.2 % (37.0-47.0); Hemoglobin 12.9 g/dl (12.0-16.0); Imm Gran Abs Auto 0.03 X10*3/uL (0.00-0.03); Imm Gran Pct Auto 0.3 % (0.0-0.4); Lymphocytes Percent Auto 20.3 % (20-40); Mean Corpuscular HGB Conc 34.7 g/dl (31.0-35.0); Mean Corpuscular Hemoglobin 35.3 pg (27.0-33.0); Mean Corpuscular Volume 101.9 fL (80.0-98.0); Mean Platelet Volume 11.1 fL (9.4-12.3); Monocytes Absolute Auto 0.9 X10*3/uL (0.1-1.2); Monocytes Percent Auto 9.6 % (2-11); Neutrophils Absolute Auto 6.6 x10*3/uL (2.0-8.3); Neutrophils Percent Auto 68.7 % (45-73); Platelet Count 225 X10*3/uL (160-400); Red Blood Count 3.65 X10*6/uL (4.20-5.50); Red Cell Distribution Width 13.3 % (11.0-16.0); White Blood Count 9.6 X10*3/uL (4.8-10.8)
[2023-12-30 22:09] LABS: Alanine Aminotransferase 14 U/L (0-31); Albumin Level 3.8 g/dL (3.5-5.0); Alkaline Phosphatase 88 U/L (39-117); Anion Gap 14 (12-20); Aspartate Amino Transferase 17 U/L (5-31); Bilirubin Total 0.3 mg/dL (0.0-1.0); Blood Urea Nitrogen 10 mg/dL (9-16); Calcium 9.5 mg/dL (8.4-10.2); Carbon Dioxide 23 mmol/L (22-29); Chloride 105 mmol/L (96-108); Creatinine Clr Calc Pharmacy 47.7; Estimated Glomerular Filt Rate > 60; Glucose Random 96 mg/dL (60-115); Lipase 26 U/L (8-78); Potassium 3.1 mmol/L (3.3-5.1); Sodium 139 mmol/L (135-145); Total Protein 6.6 g/dL (6.5-8.0)
--- NOTE | 2023-12-30 22:29 | ED_ITS ---
HPI - General Adult General Chief complaint: General Medical Stated complaint: Full body rash, aches, ULQ tenderness, abd pain Time Seen by Provider: 12/30/23 21:57 Source: patient and family Mode of arrival: EMS Limitations: language barrier (Patient does some speak Telugu, Japanese is her 1st language, spanish interpreter/translator used) History of Present Illness ED Provider: Dr. Praveen Max HPI narrative: 63-year-old female with a history of GERD, hypertension, vitamin-D deficiency, iron deficiency anemia who presents emergency department for evaluation of a pruritic rash that she has had for approximately 4 weeks. She was also complaining of a migraine headache, abdominal pain and blood per rectum. The patient states that she has a rash over her entire body that is pruritic and painful. In reviewing her record she was seen on 12/13/[address]Roca Estrada for a pruritic , diffuse, macular papular rash and was started hydrocortisone 1% t.i.d. and hydroxyzine 25 mg b.i.d.. Patient states that the rash is gotten worse and has spread over her entire body. She describes the pain is a burning sensation She is also complaining of abdominal pain she points to her epigastric area and left upper quadrant region when asked to localize the pain. She states that the pain is consistent with her gastritis pain. She has also noted blood in her stool which she states may be secondary to her hemorrhoids. She states that the pain in her abdomen is severe and is 10/10. She had associated nausea and has been vomiting up saliva. She also had loose diarrheal stools x1 day. She has subjective fever and chills. She denied myalgias arthralgias. Related Data Previous Rx's ?Medication ?Instructions ?Recorded blood pressure monitor (Blood #1 ea 11/22/22 Pressure Kit) diphenhydramine HCl 25 mg capsule 25 mg PO TID PRN allergic reaction 12/12/23 (Benadryl) 7 days #21 caps famotidine 20 mg tablet (Pepcid) 20 mg PO BID 7 days #14 tabs 12/12/23 Ventolin HFA 90 mcg/actuation 2 puff inhalation Q6H PRN 12/13/23 aerosol inhaler (albuterol sulfate) shortness of breath or wheezing 30 days #8 grams cholecalciferol (vitamin D3) 25 25 mcg PO DAILY 90 days #90 caps 12/13/23 mcg (1,000 unit) capsule hydrocortisone 1 % topical cream 1 appl topical TID PRN skin 12/13/23 (Anti-Itch (hydrocortisone)) irritation 2 weeks #28.4 grams hydroxyzine HCl 25 mg tablet 25 mg PO BID PRN itching 30 days 12/13/23 #60 tabs lisinopril 10 mg tablet 10 mg PO DAILY 90 days #90 tabs 12/13/23 omeprazole 20 mg capsule,delayed 20 mg PO DAILY 90 days #90 caps 12/13/23 release prednisone 20 mg tablet 40 mg (2 x 20 mg) PO DAILY 5 days 12/13/23 #10 tabs aluminum hydrox-magnesium carb 254 10 ml PO QID dyspepsia #355 mL 12/31/23 mg-237.5 mg/5 mL oral suspension (Gaviscon Extra Strength) diphenhydramine HCl 25 mg capsule 25 mg PO Q6H PRN headache, 12/31/23 nausea, vomiting #20 caps omeprazole 20 mg capsule,delayed 20 mg PO DAILY 30 days #30 caps 12/31/23 release prednisone 10 mg tablet 10 mg PO DIRECTED #60 tabs 12/31/23 Allergies Allergy/AdvReac Type Severity Reaction Status Date / Time aspirin Allergy Gastrointestinal Verified 12/30/23 21:30 Upset Review of Systems 2 Review of Systems: Yes all other systems are reviewed and are negative [facility] Past Medical History [facility] Narrative: Social history: She does smoke cigarettes. She does drink alcohol. She occasionally smokes marijuana. Medical History Osteopenia GERD (gastroesophageal reflux disease) Hypertension Hypovitaminosis D Iron deficiency anemia Right hand pain Surgical History History of total abdominal hysterectomy Family History Family History Father Prostate cancer Mother Breast cancer Diabetes Stroke Brother Myocardial infarction Daughter AIDS Social History Social History Housing: Apartment Alcohol intake: current Alcohol intake frequency: a few times a week Alcohol type: beer Patient Tobacco Use Status: Current someday Tobacco user Tobacco use type: Cigarette Cigarettes Per Day: 1 Smoked in Last 30 Days: No e-Cigarette/Vaping Use: Never Used Second Hand Smoke Exposure: No Use of substances other than those prescribed or required for medical reasons: No Advance Directives: No Advance Directives Information Provided: Yes Do you have a plan to hurt others: No Plan Patient : No service: No Current occupational status: unemployed Cognitive needs: No Hearing needs: No Vision needs: No Physical Exam ED Vital Signs: Vital Signs - 24 hr 12/30/23 21:23 12/31/23 00:26 12/31/23 02:01 Temperature 98.2 F 98.5 F 98.4 F Pulse Rate 80 75 70 Respiratory Rate 18 16 18 Blood Pressure 181/93 H 186/83 H 183/87 H Pulse Oximetry 97 100 100 Oxygen Delivery Method Room Air Room Air Room Air BMI result Body Mass Index 34.4 Vital signs revealed an elevated blood pressure of 181/93 otherwise unremarkable Exam: General: Awake, alert, in distress secondary to her pruritic rash and her abdominal pain Head: Normocephalic, atraumatic EENT: PERRL, Lids normal, sclera normal, conjunctiva normal, nose normal , ears normal, throat without erythema or exudates Neck: Supple, no adenopathy Lung: breath sounds symmetric, no wheezing, rales or rhonchi Chest: symmetric movement, nontender Heart: regular rate and rhythm, normal S1, S2 no murmurs or rubs Abdomen: Soft, nondistended, moderate epigastric and left upper quadrant tenderness, no rebound, voluntary guarding, no involuntary guarding, normoactive bowel sounds Back: no vertebral tenderness, no CVAT Extremities: no deformities, moves all extremities symmetrically Skin exam: Patient has raised, scaling, circular/oval lesions of different sizes, no specific pattern Neuro: Awake, alert, oriented, normal speech, cranial nerves intact, moves all extremities symmetrically Medications Administered Discontinued Medications Generic Name Dose Route Start Last Admin Trade Name Freq PRN Reason Stop Dose Admin Diphenhydramine HCl 25 mg 12/30/23 23:06 12/30/23 23:11 Diphenhydramine Hcl 50 Mg/Ml Vial IVPUSH 12/30/23 23:07 25 mg ONCE ONE Administration Iohexol 85 ml 12/31/23 00:17 12/31/23 00:18 Iohexol 350 Mg/Ml 100 Ml Infus..Btl IV 12/31/23 00:18 85 ml ONCE ONE Administration Methylprednisolone Sodium Succinate 60 mg 12/30/23 23:06 12/30/23 23:12 Methylprednisolone Sod Succ 125 Mg/2 Ml Vial IVPUSH 12/30/23 23:07 60 mg ONCE ONE Administration Morphine Sulfate 4 mg 12/30/23 23:06 12/30/23 23:11 Morphine Sulfate 4 Mg/Ml Cartridge IVPUSH 12/30/23 23:07 4 mg ONCE STA Administration Protocol Medical Decision Making Medical Decision Making MDM Narrative: 63-year-old female with a history of GERD, hypertension, vitamin-D deficiency, iron deficiency anemia who presents emergency department for evaluation of a pruritic rash that she has had for approximately 4 weeks. She was also complaining of a migraine headache, abdominal pain and blood per rectum. Vital signs revealed an elevated blood pressure otherwise unremarkable. Patient's physical examination did reveal epigastric and left upper quadrant tenderness. Patient has a scaly raised, rash of different sizes over her chest abdomen back arms and legs. Differential diagnosis: ?Includes but is not limited to biliary colic, renal colic, gastritis, esophagitis, pancreatitis, electrolyte abnormalities, anemia, pityriasis rosea, eczema, nonspecific dermatitis Following evaluation was ordered: CBC, CMP, D bili, lipase, urinalysis, ethanol level, drug screen urine Patient was initially treated with the following: Morphine 4 mg IV, Benadryl 25 mg IV and Solu-Medrol 60 mg IV Course: 02:06 My independent interpretation patient's laboratory evaluation as follows: Normal H&H of 12.9 and 37.2 but elevated MCV of 101.9-this is chronic. Low potassium 3.1. LFTs were normal. Lipase was normal. Bilirubin was normal. Urinalysis revealed trace blood, microscopic was unremarkable with no evidence for urinary tract infection. Urine tox screen was positive for cocaine and marijuana. Alcohol was below detectable limits. Patient's CT scan of the abdomen pelvis did not reveal any acute process, this time I suspect that her abdominal pain is secondary to gastritis. She was advised to stop taking Pepcid and she was prescribed Prilosec 20 mg once a day for 1 month and extra-strength Gaviscon 10 cc 4 times a day as needed. Patient's rash is more consistent with psoriasis or a nonspecific dermatitis therefore I will start her on prednisone 60 mg daily for 5 days tapered off over 2 weeks. She was also given prescription for Benadryl 25 mg 4 times a day as needed for pruritus. I did discuss the dangers of cocaine use with the patient and the patient does not want to seek detox at this time, she will be discharged home with intranasal Narcan instructions. Admission/Observation Consideration of admission/observation: Escalation of care including admission/observation considered Lab Data MDM Lab Attestation statement: I reviewed the patient's lab results. 12/30/23 21:48 12/30/23 21:48 Labs: Lab Results 12/30/23 12/30/23 12/30/23 Range/Units 21:48 23:03 23:04 WBC 9.6 (4.8-10.8) X10*3/uL RBC 3.65 L (4.20-5.50) X10*6/uL Hgb 12.9 (12.0-16.0) g/dl Hct 37.2 (37.0-47.0) % MCV 101.9 H (80.0-98.0) fL MCH 35.3 H (27.0-33.0) pg MCHC 34.7 (31.0-35.0) g/dl RDW 13.3 (11.0-16.0) % Plt Count 225 (160-400) X10*3/uL MPV 11.1 (9.4-12.3) fL Immature Gran % (Auto) 0.3 (0.0-0.4) % Neut % (Auto) 68.7 (45-73) % Lymph % (Auto) 20.3 (20-40) % [place] % (Auto) 9.6 (2-11) % Eos % (Auto) 0.8 (0-4) % Baso % (Auto) 0.3 (0-2) % Lymph # (Auto) 2.0 (1.2-4.9) X10*3/uL [place] # (Auto) 0.9 (0.1-1.2) X10*3/uL Eos # (Auto) 0.1 (0.0-0.4) X10*3/uL Baso # (Auto) 0.0 (0.0-0.2) X10*3/uL Abs Immat Gran (auto) 0.03 (0.00-0.03) X10*3/uL Absolute Neuts (auto) 6.6 (2.0-8.3) x10*3/uL Absolute Nucleated RBC 0.000 (0.0-0.012) X10*3/uL Nucleated RBC % (auto) 0.0 (0.0-0.2) /100WBC Sodium 139 (135-145) mmol/L Potassium 3.1 L (3.3-5.1) mmol/L Chloride 105 (96-108) mmol/L Carbon Dioxide 23 (22-29) mmol/L Anion Gap 14 (12-20) BUN 10 (9-16) mg/dL Creatinine 0.81 (0.5-1.4) mg/dL Estim Creat Clear Calc 47.7 Estimated GFR > 60 Random Glucose 96 (60-115) mg/dL Calcium 9.5 (8.4-10.2) mg/dL Total Bilirubin 0.3 (0.0-1.0) mg/dL AST 17 (5-31) U/L ALT 14 (0-31) U/L Alkaline Phosphatase 88 (39-117) U/L Total Protein 6.6 (6.5-8.0) g/dL Albumin 3.8 (3.5-5.0) g/dL Lipase 26 (8-78) U/L Urine Color Yellow Urine Appearance Clear Urine pH 6.0 (5.0-9.0) Ur Specific [place] <= 1.005 (1.005-1.025) Urine Protein Negative (Neg-Trace) mg/dL Urine Glucose (UA) Negative (Negative) mg/dL Urine Ketones Negative (Negative) mg/dL Urine Blood Trace H (Negative) Urine Nitrite Negative (Negative) Ur Leukocyte Esterase Negative (Negative) Urine RBC 0-2 (0-2) /HPF Urine WBC 0-5 (0-5) /HPF Ur Squamous Epith Cells 0-2 (0-2) /HPF Urine Bacteria None Seen (None Seen) Hyaline Casts 0-2 (0-2) /LPF Stool Occult Blood POSITIVE (NEGATIVE) Urine Opiates Screen Not Detected (Not Detect) Ur Buprenorphine Scrn Not Detected (Not Detect) ng/mL Ur Oxycodone Screen Not Detected (Not Detect) ng/mL Urine Methadone Screen Not Detected (Not Detect) ng/mL Urine Fentanyl Screen Not Detected (Not Detect) Ur Barbiturates Screen Not Detected (Not Detect) Ur Phencyclidine Scrn Not Detected (Not Detect) Ur Amphetamines Screen Not Detected (Not Detect) U Benzodiazepines Scrn Not Detected (Not Detect) Urine Cocaine Screen POSITIVE H (Not Detect) U Marijuana (THC) Screen POSITIVE H (Not Detect) Ethyl Alcohol < 10 mg/dL 12/31/23 Range/Units 00:30 WBC (4.8-10.8) X10*3/uL RBC (4.20-5.50) X10*6/uL Hgb (12.0-16.0) g/dl Hct (37.0-47.0) % MCV (80.0-98.0) fL MCH (27.0-33.0) pg MCHC (31.0-35.0) g/dl RDW (11.0-16.0) % Plt Count (160-400) X10*3/uL MPV (9.4-12.3) fL Immature Gran % (Auto) (0.0-0.4) % Neut % (Auto) (45-73) % Lymph % (Auto) (20-40) % [place] % (Auto) (2-11) % Eos % (Auto) (0-4) % Baso % (Auto) (0-2) % Lymph # (Auto) (1.2-4.9) X10*3/uL [place] # (Auto) (0.1-1.2) X10*3/uL Eos # (Auto) (0.0-0.4) X10*3/uL Baso # (Auto) (0.0-0.2) X10*3/uL Abs Immat Gran (auto) (0.00-0.03) X10*3/uL Absolute Neuts (auto) (2.0-8.3) x10*3/uL Absolute Nucleated RBC (0.0-0.012) X10*3/uL Nucleated RBC % (auto) (0.0-0.2) /100WBC Sodium (135-145) mmol/L Potassium (3.3-5.1) mmol/L Chloride (96-108) mmol/L Carbon Dioxide (22-29) mmol/L Anion Gap (12-20) BUN (9-16) mg/dL Creatinine (0.5-1.4) mg/dL Estim Creat Clear Calc Estimated GFR Random Glucose (60-115) mg/dL Calcium (8.4-10.2) mg/dL Total Bilirubin (0.0-1.0) mg/dL AST (5-31) U/L ALT (0-31) U/L Alkaline Phosphatase (39-117) U/L Total Protein (6.5-8.0) g/dL Albumin (3.5-5.0) g/dL Lipase (8-78) U/L Urine Color Urine Appearance Urine pH (5.0-9.0) Ur Specific [place] (1.005-1.025) Urine Protein (Neg-Trace) mg/dL Urine Glucose (UA) (Negative) mg/dL Urine Ketones (Negative) mg/dL Urine Blood (Negative) Urine Nitrite (Negative) Ur Leukocyte Esterase (Negative) Urine RBC (0-2) /HPF Urine WBC (0-5) /HPF Ur Squamous Epith Cells (0-2) /HPF Urine Bacteria (None Seen) Hyaline Casts (0-2) /LPF Stool Occult Blood (NEGATIVE) Urine Opiates Screen Not Detected (Not Detect) Ur Buprenorphine Scrn Not Detected (Not Detect) ng/mL Ur Oxycodone Screen Not Detected (Not Detect) ng/mL Urine Methadone Screen Not Detected (Not Detect) ng/mL Urine Fentanyl Screen Not Detected (Not Detect) Ur Barbiturates Screen Not Detected (Not Detect) Ur Phencyclidine Scrn Not Detected (Not Detect) Ur Amphetamines Screen Not Detected (Not Detect) U Benzodiazepines Scrn Not Detected (Not Detect) Urine Cocaine Screen POSITIVE H (Not Detect) U Marijuana (THC) Screen POSITIVE H (Not Detect) Ethyl Alcohol mg/dL Radiology Impression Discussion of test interpretation with radiology: I have reviewed the radiologist's reading. Radiologist Impression: CT abdomen pelvis w IV con IMPRESSION: 1. No acute intra-abdominal or intrapelvic abnormalities. 2. A 2.5 mm nonobstructing left renal calculus. Fleischner guidelines were followed. Dictated By: Osmin Alexander MD Critical Care Time Critical Care Time Critical Care Time: Yes Total Critical Care Time: 35 Attestation: Critical Care: The patient was critically ill with a high probability of imminent or life threatening deterioration. I spent greater than 30 minutes of discontinuous time evaluating the patient,delivering critical care at the bedside, discussing and evaluating pertinent data with consultants. Critical care time does not include time spent performing separately billable procedures or teaching. Total time spent performing critical care was 35 minutes. Discharge Plan Discharge Clinical Impression: Psoriasis, Cocaine use Abdominal pain Qualifiers: Abdominal location: epigastric Qualified Code(s): R10.13 - Epigastric pain Patient Disposition: Home, Self-Care Instructions: Gastritis (ED), Psoriasis (ED) Additional Instructions: Your blood work was unremarkable. The CT scan of your abdomen pelvis did not reveal any clear cause for your abdominal pain. I suspect that your pain is caused by gastritis. Stop taking Pepcid (famotidine). Take Prilosec (omeprazole) 20 mg pills, 1 pill once a day for 1 month. ?This medication shuts off your acid production and lets the inflammation in your stomach and esophagus heal. Take extra-strength Gaviscon 10 mL (2 tsp) 4 times a day as needed for abdominal pain. Take Benadryl (diphenhydramine) 25 mg, 1 pill 4 times a day as needed for itchiness Your urine drug screen was positive for cocaine. You should get help with your cocaine use disorder. Using cocaine is very dangerous especially since most cocaine is contaminated with fentanyl and this can cause you to stop breathing and . Your are being discharged home with intranasal Narcan. If you are going to continue to use heroin, you should make sure that there is a sober person with you that is not using drugs and that this person can administer intranasal Narcan in the event that you stop breathing. Prescriptions: New prednisone 10 mg tablet 10 mg PO DIRECTED Qty: 60 0RF Rx Instructions: Day 1 through 5 take 6 pills then decrease by 1 pill every 2 days until you complete prescription diphenhydramine HCl 25 mg capsule 25 mg PO Q6H PRN (Reason: headache, nausea, vomiting) Qty: 20 0RF omeprazole 20 mg capsule,delayed release(DR/EC) 20 mg PO DAILY 30 Days Qty: 30 0RF Gaviscon Extra Strength 254-237.5 mg/5 mL suspension 10 ml PO QID Qty: 355 0RF No Action diphenhydramine HCl [Benadryl] 25 mg capsule 25 mg PO TID PRN (Reason: allergic reaction) 7 Days Qty: 21 0RF famotidine [Pepcid] 20 mg tablet 20 mg PO BID 7 Days Qty: 14 0RF albuterol sulfate [Ventolin HFA] 90 mcg/actuation HFA aerosol inhaler 2 puff inhalation Q6H PRN (Reason: shortness of breath or wheezing) 30 Days Qty: 8 2RF lisinopril 10 mg tablet 10 mg PO DAILY 90 Days Qty: 90 1RF cholecalciferol (vitamin D3) 25 mcg (1,000 unit) capsule 25 mcg PO DAILY 90 Days Qty: 90 3RF omeprazole 20 mg capsule,delayed release(DR/EC) 20 mg PO DAILY 90 Days Qty: 90 1RF prednisone 20 mg tablet 40 mg PO DAILY 5 Days Qty: 10 0RF hydroxyzine HCl 25 mg tablet 25 mg PO BID PRN (Reason: itching) 30 Days Qty: 60 0RF hydrocortisone [Anti-Itch (HC)] 1 % cream 1 appl topical TID PRN (Reason: skin irritation) 14 Days Qty: 28.4 0RF (DME) blood pressure monitor [Blood Pressure Kit] Kit See Rx Instructions .Route Qty: 1 0RF Rx Instructions: As directed Print Language: Japanese
[2023-12-30] MEDS: diphenhydrAMINE HCL 50 MG/ML VIAL 25 MG IVPUSH (23:11)
[2023-12-30] MEDS: Morphine Sulfate 4 MG/ML CARTRIDGE IVPUSH (23:11)
[2023-12-30 23:12] LABS: OBS Int Ctl Valid YES; OBS1 POSITIVE (NEGATIVE)
[2023-12-30 23:12] LABS: Appearance Urine Clear; Color Urine Yellow; Glucose Urine UA Negative (Negative); Leukocyte Esterase Urine Negative (Negative); Nitrite Urine Negative (Negative); Specific Gravity - Urine <= 1.005 (1.005-1.025); UMIC TRIGGER UACC YES; Urine Blood Trace (Negative); Urine Ketones Negative (Negative); Urine Protein Negative (Neg-Trace)
[2023-12-30] MEDS: methylPREDNISolone Sod Succ 125 MG/2 ML VIAL 60 MG IVPUSH (23:12)
[2023-12-30 23:15] LABS: Bacteria Urine None Seen (None Seen); Hyaline Casts Urine 0-2 /LPF (0-2); RBC Urine 0-2 /HPF (0-2); Squamous Epithelial Cell Urine 0-2 /HPF (0-2); WBC Urine 0-5 /HPF (0-5)
[2023-12-30 23:40] LABS: Amphetamine Screen Urine Not Detected (Not Detect); Barbiturates, Urine Not Detected (Not Detect); Benzodiazepines Screen Urine Not Detected (Not Detect); Buprenorphine Scr Not Detected (Not Detect); Cannabinoid Screen Urine POSITIVE (Not Detect); Cocaine Screen Urine POSITIVE (Not Detect); Fentanyl, urine Not Detected (Not Detect); Methadone Screen, Urine Not Detected (Not Detect); Opiate Screen Urine Not Detected (Not Detect); Oxycodone Screen Urine Not Detected (Not Detect); Phencyclidine Screen Urine Not Detected (Not Detect)
[2023-12-30 23:48] LABS: Ethanol < 10 mg/dL
[2023-12-31] MEDS: iohexoL 350 MG/ML 100 ML INFUS..BTL 85 ML IV (00:18)
[2023-12-31 00:26] VITALS: BP 186/83; PULSE 75; RESP 16; TEMP 36.9; O2SAT 100
--- NOTE | 2023-12-31 00:30 | MHC.EDTECH ---
This tech took over care of patient at 2300,hourly rounds and vitals completed,BP is elevated 186/83,RN aware. Patient urinated a moderate amount on the bedpan,arash-care given and sample obtained and sent to lab,call correa in reach
[2023-12-31 00:54] LABS: Amphetamine Screen Urine Not Detected (Not Detect); Barbiturates, Urine Not Detected (Not Detect); Benzodiazepines Screen Urine Not Detected (Not Detect); Buprenorphine Scr Not Detected (Not Detect); Cannabinoid Screen Urine POSITIVE (Not Detect); Cocaine Screen Urine POSITIVE (Not Detect); Fentanyl, urine Not Detected (Not Detect); Methadone Screen, Urine Not Detected (Not Detect); Opiate Screen Urine Not Detected (Not Detect); Oxycodone Screen Urine Not Detected (Not Detect); Phencyclidine Screen Urine Not Detected (Not Detect)
[2023-12-31 02:01] VITALS: BP 183/87; PULSE 70; RESP 18; TEMP 36.9; O2SAT 100
[2023-12-31 02:52] VITALS: BP 179/89; PULSE 81; RESP 18; TEMP 36.7; O2SAT 100
--- OUTSIDE RECORDS SUMMARY | 2024-01-05 08:50 | XMS_ITS | Patient Health Record ---
Author Organization [facility] Address [address], [place] [id number] Support Name Relationship Address Phone Nigel Rodriguez [facility] [place], [place] [id number] Moira Caballero Guarantor Unknown Unavailable REASON FOR REFERRAL No Information SOCIAL HISTORY Sex Assigned At : Social History Observation Description Sex Assigned At Unknown PLAN OF TREATMENT No Information Insurance Providers Payer Name Payer Address Payer Phone Subscriber Number Group Number Insured Name Patient Relationship to Insured Coverage Start Date Coverage End Date [place] [address] [place] [address] [id number] Moira Simmons Self - patient is the insured
== END 2023-12-31 02:52 | disposition home or self-care (01) ==
PROVIDERS: Emergency Provider Emergency Medicine Emergency Medical Services; PCP Internal Medicine
DX: L40.9 Psoriasis, unspecified (principal); R10.13 Epigastric pain; F14.90 Cocaine use, unspecified, uncomplicated; F17.210 Nicotine dependence, cigarettes, uncomplicated; D50.9 Iron deficiency anemia, unspecified; K21.9 Gastro-esophageal reflux disease without esophagitis; Z79.899 Other long term (current) drug therapy
CPT/HCPCS: 36415; 74177; 80053; 80307; 81001; 82272; 83690; 85025; 93005; 96374; 96375; 99284; J1200; J2270; J2919; Q9967

== ENCOUNTER → 2023-12-30 21:40 | Outpatient (BNV) | payer OTHER, SELFPAY | PROVIDERS: Emergency Provider Emergency Medicine Emergency Medical Services; PCP Internal Medicine; Visit Provider Internal Medicine | DX: I10 Essential (primary) hypertension (principal) | CPT/HCPCS: 93010 ==

== ENCOUNTER 2024-04-12 14:05 | Emergency (ER) | payer OTHER, SELFPAY ==
--- NOTE | 2024-04-12 14:08 | ED.SKABFB ---
HPI - Skin/Abscess/Foreign Bdy General Chief complaint: Skin/Abscess/Foreign Body Stated complaint: Rash Related Data Previous Rx's ?Medication ?Instructions ?Recorded blood pressure monitor (Blood #1 ea 11/22/22 Pressure Kit) diphenhydramine HCl 25 mg capsule 25 mg PO TID PRN allergic reaction 12/12/23 (Benadryl) 7 days #21 caps famotidine 20 mg tablet (Pepcid) 20 mg PO BID 7 days #14 tabs 12/12/23 Ventolin HFA 90 mcg/actuation 2 puff inhalation Q6H PRN 12/13/23 aerosol inhaler (albuterol sulfate) shortness of breath or wheezing 30 days #8 grams cholecalciferol (vitamin D3) 25 25 mcg PO DAILY 90 days #90 caps 12/13/23 mcg (1,000 unit) capsule hydrocortisone 1 % topical cream 1 appl topical TID PRN skin 12/13/23 (Anti-Itch (hydrocortisone)) irritation 2 weeks #28.4 grams lisinopril 10 mg tablet 10 mg PO DAILY 90 days #90 tabs 12/13/23 omeprazole 20 mg capsule,delayed 20 mg PO DAILY 90 days #90 caps 12/13/23 release prednisone 20 mg tablet 40 mg (2 x 20 mg) PO DAILY 5 days 12/13/23 #10 tabs aluminum hydrox-magnesium carb 254 10 ml PO QID dyspepsia #355 mL 12/31/23 mg-237.5 mg/5 mL oral suspension (Gaviscon Extra Strength) diphenhydramine HCl 25 mg capsule 25 mg PO Q6H PRN headache, 12/31/23 nausea, vomiting #20 caps omeprazole 20 mg capsule,delayed 20 mg PO DAILY 30 days #30 caps 12/31/23 release prednisone 10 mg tablet 10 mg PO DIRECTED #60 tabs 12/31/23 hydroxyzine HCl 25 mg tablet 25 mg PO BID PRN itching 30 days 01/09/24 #60 tabs Allergies Allergy/AdvReac Type Severity Reaction Status Date / Time aspirin Allergy Gastrointestinal Verified 04/12/24 14:13 Upset PMFSH Past Medical History Medical History Osteopenia GERD (gastroesophageal reflux disease) Hypertension Hypovitaminosis D Iron deficiency anemia Right hand pain Surgical History History of total abdominal hysterectomy Family History Family History Father Prostate cancer Mother Breast cancer Diabetes Stroke Brother Myocardial infarction Daughter AIDS Social History Social History Housing: Apartment Alcohol intake: current Alcohol intake frequency: a few times a week Alcohol type: beer Patient Tobacco Use Status: Current someday Tobacco user Tobacco use type: Cigarette Cigarettes Per Day: 1 e-Cigarette/Vaping Use: Never Used Second Hand Smoke Exposure: No service: No Current occupational status: unemployed Cognitive needs: No Hearing needs: No Vision needs: No Physical Exam Vital Signs: Vital Signs: Last Vital Signs Temp 98.4 F 04/12/24 14:09 Pulse 88 04/12/24 14:09 Resp 16 04/12/24 14:09 BP 119/70 04/12/24 14:09 Pulse Ox 97 04/12/24 14:09 O2 Del Method Room Air 04/12/24 14:09 BMI result Body Mass Index 35.3 Course Course Course Narrative: This is a Rapid Medical Examination (RME) performed by Brad Valentine PA-C in triage. Full HPI, ROS, assessment and treatment plan per primary provider in the Main ED. 63 yo female hx of HTN, vitamin D deficiency, iron deficiency anemia, GERD, asthma, depression here w/ diffuse pruritic body rash x months. reports burning sensation when she bathes herself. admits it feels like something is walking through my body . seen by PCP on 12/13/23 and here on 12/30/23 for same. treated with multiple medications including hydrocortisone, hydroxyzine, prednisone, Benadryl. reports continued symptoms. reports tiny mosquitos around her current residence. no other tick or insect bites. admits to marijuana use. no deric meds/ antibiotics. no new soaps/ lotions/ detergents. Plan: labs, tick/ lyme testing Reevaluation(s) Reevaluation #1: Patient left the emergency department before myself or any of the other clinicians could review or explain physical exam findings, test results, need or lack there of for additional testing, treatment options, or a treatment plan. Medical Decision Making Lab Data 04/12/24 14:40 04/12/24 14:41 Labs: Lab Results 04/12/24 04/12/24 Range/Units 14:40 14:41 WBC 5.0 (4.8-10.8) X10*3/uL RBC 3.28 L (4.20-5.50) X10*6/uL Hgb 11.6 L (12.0-16.0) g/dl Hct 36.2 L (37.0-47.0) % MCV 110.4 H (80.0-98.0) fL MCH 35.4 H (27.0-33.0) pg MCHC 32.0 (31.0-35.0) g/dl RDW 14.7 (11.0-16.0) % Plt Count 181 (160-400) X10*3/uL MPV 10.4 (9.4-12.3) fL Immature Gran % (Auto) 0.6 H (0.0-0.4) % Neut % (Auto) 68.0 (45-73) % Lymph % (Auto) 16.3 L (20-40) % [place] % (Auto) 10.9 (2-11) % Eos % (Auto) 3.4 (0-4) % Baso % (Auto) 0.8 (0-2) % Lymph # (Auto) 0.8 L (1.2-4.9) X10*3/uL [place] # (Auto) 0.6 (0.1-1.2) X10*3/uL Eos # (Auto) 0.2 (0.0-0.4) X10*3/uL Baso # (Auto) 0.0 (0.0-0.2) X10*3/uL Abs Immat Gran (auto) 0.03 (0.00-0.03) X10*3/uL Absolute Neuts (auto) 3.4 (2.0-8.3) x10*3/uL Absolute Nucleated RBC 0.000 (0.0-0.012) X10*3/uL Nucleated RBC % (auto) 0.0 (0.0-0.2) /100WBC Sodium 143 (135-145) mmol/L Potassium 3.6 (3.3-5.1) mmol/L Chloride 112 H (96-108) mmol/L Carbon Dioxide 22 (22-29) mmol/L Anion Gap 13 (12-20) BUN 10 (9-16) mg/dL Creatinine 0.85 (0.5-1.4) mg/dL Estim Creat Clear Calc 46.2 Estimated GFR > 60 Random Glucose 103 (60-115) mg/dL Calcium 8.6 D (8.4-10.2) mg/dL Total Bilirubin 0.4 (0.0-1.0) mg/dL AST 21 (5-31) U/L ALT 18 (0-31) U/L Alkaline Phosphatase 79 (39-117) U/L Total Protein 5.9 L (6.5-8.0) g/dL Albumin 3.4 L (3.5-5.0) g/dL Discharge Plan Discharge Clinical Impression: Rash Patient Disposition: Left W/O Completing Treatment Prescriptions: No Action hydroxyzine HCl 25 mg tablet 25 mg PO BID PRN (Reason: itching) 30 Days Qty: 60 0RF diphenhydramine HCl [Benadryl] 25 mg capsule 25 mg PO TID PRN (Reason: allergic reaction) 7 Days Qty: 21 0RF famotidine [Pepcid] 20 mg tablet 20 mg PO BID 7 Days Qty: 14 0RF prednisone 10 mg tablet 10 mg PO DIRECTED Qty: 60 0RF Rx Instructions: Day 1 through 5 take 6 pills then decrease by 1 pill every 2 days until you complete prescription diphenhydramine HCl 25 mg capsule 25 mg PO Q6H PRN (Reason: headache, nausea, vomiting) Qty: 20 0RF omeprazole 20 mg capsule,delayed release(DR/EC) 20 mg PO DAILY 30 Days Qty: 30 0RF Gaviscon Extra Strength 254-237.5 mg/5 mL suspension 10 ml PO QID Qty: 355 0RF albuterol sulfate [Ventolin HFA] 90 mcg/actuation HFA aerosol inhaler 2 puff inhalation Q6H PRN (Reason: shortness of breath or wheezing) 30 Days Qty: 8 2RF lisinopril 10 mg tablet 10 mg PO DAILY 90 Days Qty: 90 1RF cholecalciferol (vitamin D3) 25 mcg (1,000 unit) capsule 25 mcg PO DAILY 90 Days Qty: 90 3RF omeprazole 20 mg capsule,delayed release(DR/EC) 20 mg PO DAILY 90 Days Qty: 90 1RF prednisone 20 mg tablet 40 mg PO DAILY 5 Days Qty: 10 0RF hydrocortisone [Anti-Itch (HC)] 1 % cream 1 appl topical TID PRN (Reason: skin irritation) 14 Days Qty: 28.4 0RF (DME) blood pressure monitor [Blood Pressure Kit] Kit See Rx Instructions .Route Qty: 1 0RF Rx Instructions: As directed Discharge Date/Time: 04/12/24 18:32
[2024-04-12 14:09] VITALS: BP 119/70; PULSE 88; RESP 16; TEMP 36.9; O2SAT 97; BMI 35.3
[2024-04-12 14:50] LABS: MANUAL DIFF FLAG NO
[2024-04-12 14:55] LABS: Basophils Percent Auto 0.8 % (0-2); Eosinophils Absolute Auto 0.2 X10*3/uL (0.0-0.4); Eosinophils Percent Auto 3.4 % (0-4); Hematocrit 36.2 % (37.0-47.0); Hemoglobin 11.6 g/dl (12.0-16.0); Imm Gran Abs Auto 0.03 X10*3/uL (0.00-0.03); Imm Gran Pct Auto 0.6 % (0.0-0.4); Lymphocytes Absolute Auto 0.8 X10*3/uL (1.2-4.9); Lymphocytes Percent Auto 16.3 % (20-40); Mean Corpuscular Hemoglobin 35.4 pg (27.0-33.0); Mean Corpuscular Volume 110.4 fL (80.0-98.0); Mean Platelet Volume 10.4 fL (9.4-12.3); Monocytes Absolute Auto 0.6 X10*3/uL (0.1-1.2); Monocytes Percent Auto 10.9 % (2-11); Neutrophils Absolute Auto 3.4 x10*3/uL (2.0-8.3); Platelet Count 181 X10*3/uL (160-400); Red Blood Count 3.28 X10*6/uL (4.20-5.50); Red Cell Distribution Width 14.7 % (11.0-16.0)
[2024-04-12 15:10] LABS: Alanine Aminotransferase 18 U/L (0-31); Albumin Level 3.4 g/dL (3.5-5.0); Alkaline Phosphatase 79 U/L (39-117); Anion Gap 13 (12-20); Aspartate Amino Transferase 21 U/L (5-31); Bilirubin Total 0.4 mg/dL (0.0-1.0); Blood Urea Nitrogen 10 mg/dL (9-16); Calcium 8.6 mg/dL (8.4-10.2); Carbon Dioxide 22 mmol/L (22-29); Chloride 112 mmol/L (96-108); Creatinine Clr Calc Pharmacy 46.2; Estimated Glomerular Filt Rate > 60; Glucose Random 103 mg/dL (60-115); Potassium 3.6 mmol/L (3.3-5.1); Sodium 143 mmol/L (135-145); Total Protein 5.9 g/dL (6.5-8.0)
--- NOTE | 2024-04-12 16:00 | MHC.EDTECH ---
Pt from [facility]. Pt jittery during blood draw. Unable to draw complete ordered lab set on 2nd stick as patient moved and needle fell out. U&E + CBC + Lyme completed. Tick panel was unable to be drawn. Pt informed that this would be drawn at a later time when she was given a space/room.
--- OUTSIDE RECORDS SUMMARY | 2024-04-12 18:23 | XMS_ITS | Patient Health Record ---
Author Organization [facility] Address [address], [place] [id number] Support Name Relationship Address Phone Nigel Rodriguez Emergency Contact under [facility] [place], [place] [phone] Moira Caballero Guarantor Unknown Unavailable REASON FOR REFERRAL No Information SOCIAL HISTORY Sex Assigned At : Social History Observation Description Sex Assigned At Unknown PLAN OF TREATMENT No Information Insurance Providers Payer Name Payer Address Payer Phone Subscriber Number Group Number Insured Name Patient Relationship to Insured Coverage Start Date Coverage End Date [place] Medicaid Standard [address] [place] [address] [id number] Moira Simmons Self - patient is the insured
[2024-04-16 22:23] LABS: Lyme Abs Screen <0.90 index
== END 2024-04-12 18:32 | disposition left against medical advice (07) ==
PROVIDERS: Physician Assistant Medical; Emergency Provider Emergency Medicine; PCP Internal Medicine
DX: R21 Rash and other nonspecific skin eruption (principal); I10 Essential (primary) hypertension; K21.9 Gastro-esophageal reflux disease without esophagitis; J45.909 Unspecified asthma, uncomplicated; F17.210 Nicotine dependence, cigarettes, uncomplicated; Z79.899 Other long term (current) drug therapy; Z53.21 Procedure and treatment not carried out due to patient leaving prior to being seen by health care provider
CPT/HCPCS: 36415; 80053; 85025; 86617; 86618; 99281

== ENCOUNTER 2024-07-04 12:33 | Outpatient (AMB) | payer OTHER, SELFPAY ==
--- NOTE | 2024-07-04 12:35 | A.OFFPC_ITS ---
Vital Signs 07/04/24 12:36 Height 4 ft 5 in Weight 134 lb BMI 33.5 BP 150/82 H Blood Pressure Location Lt brachial Position Sitting Intake Visit Reasons: physical Exam Intake Note: Patient here for a physical exam Guidance Counselor Required: No Accompanied by: Self / Same As Patient Allergies aspirin Allergy (Verified 07/04/24 12:44) Gastrointestinal Upset Medication List - Last Reconciled 07/04/24 by Jeni Estrada MD aluminum hydrox-magnesium carb 254-237.5 mg/5 mL (Gaviscon Extra Strength) 10 mL PO QID blood pressure monitor (Blood Pressure Kit) As directed cholecalciferol (vitamin D3) 25 mcg PO DAILY 90 days diphenhydramine HCl 25 mg PO Q6H PRN famotidine (Pepcid) 20 mg PO BID 7 days hydrocortisone 1% (Anti-Itch (hydrocortisone)) 1 appl topical TID PRN 2 weeks hydroxyzine HCl 25 mg PO BID PRN 30 days lisinopril 10 mg PO DAILY 90 days omeprazole 20 mg PO DAILY 30 days Ventolin HFA 90 mcg/actuation (albuterol sulfate) 2 puffs inhalation Q6H PRN 30 days NS Tobacco use date assessed: 12/13/23 Dental Screening Dental Screen Date: 12/13/23 HPI HPI Comments History of Present Illness Details The patient is a 63-year-old female presenting with multiple chronic conditions and for her annual physical examination. She reports a history of essential hypertension, with a current blood pressure reading of 150/80 mmHg. Previously, she was on Lisinopril 10 mg, which she is not currently taking, possibly contributing to the elevated levels. She also has a history of asthma for which she occasionally uses an inhaler on an as-needed basis. The patient experiences depression, with a PHQ-9 score of 12, indicating mild depression. She is engaged in mental health work to address these symptoms. Additionally, she has gastroesophageal reflux disease and previously used omeprazole. She acknowledges episodic use of smoking and alcohol, with possible implications for her mood and general health. The patient has undergone a hysterectomy, the only surgical procedure in her history. She notes that her father had prostate cancer and her mother from breast cancer, but she has not undergone mammography. There are no reported gastrointestinal issues aside from nausea, and she notes prior management of vitamin D deficiency, although she is not currently taking supplements. - Referred for mammography due to family history of breast cancer. - Planned bone density scan due to age o leila 62 years. - Recommended colonoscopy as it has been over ten years since the last procedure. - Vaccination status reviewed; due for p neumococcal vaccine, offered during visit. - Discussed need for regular blood press ure monitoring. - Lifestyle modification recommendations given for smoking cessation and alcohol moderation. [facility]LY [facility], [facility] Medical History Osteopenia GERD (gastroesophageal reflux disease) Hypertension Hypovitaminosis D Iron deficiency anemia Right hand pain Surgical History History of total abdominal hysterectomy Family History Father Prostate cancer Mother Breast cancer Diabetes Stroke Brother Myocardial infarction Daughter AIDS Social History Housing: Apartment Alcohol intake: current Alcohol intake frequency: a few times a week Alcohol type: beer Patient Tobacco Use Status: Current someday Tobacco user Tobacco use type: Cigarette Cigarettes Per Day: 1 e-Cigarette/Vaping Use: Never Used Second Hand Smoke Exposure: No service: No Current occupational status: unemployed Cognitive needs: No Hearing needs: No Vision needs: No Questionnaire PHQ-9 Over the last 2 weeks, how often have you been bothered by any of the following problems? 1. Little interest or pleasure in doing things: nearly every day 2. Feeling down, depressed, or hopeless: more than half the days 3. Trouble falling or staying asleep, or sleeping too much: several days 4. Feeling tired or having little energy: several days 5. Poor appetite or overeating: several days 6. Feeling bad about yourself - or that you are a failure or have let yourself or your family down: several days 7. Trouble concentrating on things, such as reading the newspaper or watching television: several days 8. Moving or speaking so slowly that other people could have noticed. Or the opposite - being so fidgety or restless that you have been moving around a lot more than usual: more than half the days 9. Thoughts that you would be better off or of hurting yourself in some way: not at all Total score: 12 Depression Screening Interpretation: Positive Depression Screening Follow-up: Existing condition, In treatment, Community Mental Health Worker F/U and Follow- up Visit Requested Depression Screening Done: Yes 98011 - PHQ-9 Billing: Yes Source: Developed by Drs. Omar Muro, Yohana Massey, Panda Michelle and colleagues, with an educational elza from [employer]. Thrive Questionnaire Date Thrive assessed: 12/13/23 I am a: Patient What is your living situation today?: I have a steady place to live Within the past 12 months, did the food you bought not last and you didn't have the money to get more?: Sometimes True Within the past 12 months, did you worry whether your food would run out before you got money to buy more?: Sometimes True Do you have trouble paying for medicines?: No Do you have trouble getting transportation to medical appointments?: No Do you have trouble paying your heating and electricity bill?: Yes Do you have trouble taking care of your child, family member or friend?: No Do you have trouble with day-to-day activities such as bathing, preparing meals, shopping, managing finances, etc.?: Yes Are you currently unemployed and looking for a job?: Yes Are you interested in more education?: Yes Please select the resources that you would like help with: None Currently or been in a relationship where the following occur: I choose not to answer THRIVE Score: 3 AUDIT C Alcohol Use Questionnaire (AUDIT-C) 1. How often do you have a drink containing alcohol?: 2-3 times a week 2. How many drinks containing alcohol do you have on a typical day when you are drinking?: 1 or 2 3. How often do you have six or more drinks on one occasion?: Never Total Score: 3 NEIDA-7 AMB Questionnaire NEIDA-7 Date NEIDA - 7 assessed: 12/13/23 Feeling nervous, anxious, or on edge: 1 = Several days Not being able to stop or control worryin = Several days Worrying too much about different things: 1 = Several days Trouble relaxin = Several days Being so restless that it is hard to sit still: 1 = Several days Becoming easily annoyed or irritable: 1 = Several days Feeling afraid as if something awful might happen: 1 = Several days Total NEIDA-7 score (0-4 normal; 5-9 mild; 10-14 moderate; 15-21 severe): 7 Source: Developed by Drs. Omar Muro, Yohana Massey, Panda Michelle and colleagues, with an educational elza from [employer]. NEIDA-7 Assessment Billing NEIDA-7 Assessment Tool: NEIDA-7 Assessment 64616 Review of Systems Const Details: - General: Reports depression. - Gastrointestinal: Denies significant gastrointestinal symptoms apart from episodes of nausea. - Respiratory: No current issues noted, uses inhaler as needed. - Genitourinary: Denies problems with urination or bowel movements. Physical exam (Primary Care) Vital Signs: Last Vital Signs BP 150/82 H 07/04/24 12:36 BMI result Body Mass Index 33.5 BMI Assessment/Plan discussion: High BMI High, discussed plan: lifestyle, weight reduction, dietary and physical activity Tobacco/Smoking Status: Tobacco use Status Tobacco use date assessed 12/13/23 07/04/24 12:38 Patient Tobacco Use Status Current someday Tobacco 07/04/24 12:38 Tobacco use type Cigarette 07/04/24 12:38 e-Cigarette/Vaping Use Never Used 07/04/24 12:38 Are you ready to quit: Yes Tobacco cessation counseling provided: No PHQ-9: PHQ-9 Score PHQ-9: Total score 12 07/04/24 12:51 Depression Screening Interpretation: Positive Depression Screening Follow-up: Existing condition, In treatment, Community Mental Health Worker F/U and Follow- up Visit Requested Thrive Assessment: Date of Thrive Assessment Date Thrive assessed 12/13/23 07/04/24 12:38 Currently or been in a relationship where the following occur: I choose not to answer Const Other: General: Cooperative, healthy appearing, comfortable, no acute distress and well developed Orientation: Patient oriented x3 Limitations: No limitations Head: Normal to inspection Ears: Hearing grossly normal bilaterally Nose: Normal external nose present Face and sinus: Normal facial exam Eyes: Appearance normal, both eyes and all related structures Neck: Normal visual inspection and Yes full ROM Respiratory: Normal respiratory effort and able to speak in complete sentences. Clear to auscultation bilaterally Cardiovascular: Regular rate and rhythm. Normal S1 and S2 GI: Normal to inspection. Soft to palpation and nontender Skin: No rashes or lesions noted Neuro: Patient oriented x3 Extremities: Normal to inspection Office Procedures Flu Questionnaire Does the patient have a severe egg allergy?: No Immunizations Fluarix Triv [id number] (PF) 45 mcg (15 mcg x 3)/0.5 mL IM syringe Performing Provider: Jeni Estrada MD Performing Location: [facility] Documented (not given) by: CARLITA Amador on 07/04/24 12:43 Reason Not Given: Patient Refused pneumoc 20-dez conj-dip cr(PF) 0.5 mL IM syringe Performing Provider: Jeni Estrada MD Performing Location: [facility] Administered by: CARLITA Amador on 07/04/24 13:03 Dose Route Admin Location Dispensed Lot Number Expiration Date [employer] 0.5 mL IM Right Deltoid 0.[id number] 07/31/25 8882-3511-27 [employer] VIS Given Date VIS Provided VIS Publication Date 07/04/24 Single Vaccine 21 Eligibility Eligibility Date Funding Source Not [facility] [place] Eligible 07/04/24 Private Coding Level of Care Code Est Pt Level 3 (67768) Est Pt Prev Care 40-64y(77145) Diagnoses Physical exam Z00.00 Hypertension I10 GERD (gastroesophageal reflux disease) K21.9 Additional Codes PHQ-9 - 11513 - PHQ-9 Billing: Yes ([id number]) NEIDA-7 Assessment Billing - NEIDA-7 Assessment Tool: NEIDA-7 Assessment 16345 ([id number]) Time Spent (min) 31 Assessment & Plan Assessment & Plan (1) Physical exam: Code(s): Z00.00 - Encounter for general adult medical examination without abnormal findings Category: Medical (2) Hypertension: Code(s): I10 - Essential (primary) hypertension Category: Medical (3) GERD (gastroesophageal reflux disease): Code(s): K21.9 - Gastro-esophageal reflux disease without esophagitis Category: Medical Plan 1. Essential Hypertension: Restart Lisinopril 10 mg and re-evaluate blood pressure in three weeks. 2. Depression: Continue with psychiatric support and recommend ongoing monitoring of mood. 3. Asthma: Continue as-needed use of inhaler. 4. Gastroesophageal Reflux Disease: Consider re-initiation of omeprazole pending further evaluation. 5. Vitamin D Deficiency: Recommend continuation of vitamin D supplementation. 6. Preventive Care: Mammography and bone density scan ordered. Pneumococcal vaccination administered. Patient was informed and verbally consented to the use of an ambient scribe for clinic note documentation during this visit. I discussed the importance of managing blood pressure and restarting Lisinopril. We reviewed the implications of family cancer history and the need for regular screenings, including mammography and bone density scans. I advised on lifestyle modifications, emphasizing smoking cessation and moderating alcohol intake. The patient received a pneumococcal vaccine and understood the necessity of flu and tetanus vaccines according to schedule. We also discussed her mental health care and reinforced the continued use of psychiatric resources. Orders: Orders MM tomosynthesis screening BI Today Z12.31 - Encounter for screening mammogram for malignant neoplasm of breast Complete Blood Count Auto Diff Today D64.9 - Anemia, unspecified IRON PROFILE Today D64.9 - Anemia, unspecified Vitamin D 25-OH Total Today E55.9 - Vitamin D deficiency, unspecified Comprehensive [place]. Panel Fast Today I10 - Essential (primary) hypertension Influenza 5971-4513 Immunization Today Z23 - Encounter for immunization Pneumococcal 20 Immunization Today Z23 - Encounter for immunization XR DEXA axial skeleton Today Z78.0 - Asymptomatic menopausal state Lipid Panel Today E78.5 - Hyperlipidemia, unspecified, I10 - Essential (primary) hypertension Referrals Open Access Screening Colonoscopy Referral Z12.12 - Encounter for screening for malignant neoplasm of rectum Medications: Refilled hydroxyzine HCl 25 mg PO BID 30 days PRN 60 tabs 0RF itching I10 - Essential (primary) hypertension cholecalciferol (vitamin D3) 25 mcg PO DAILY 90 days 90 caps 3RF I10 - Essential (primary) hypertension lisinopril 10 mg PO DAILY 90 days 90 tabs 1RF I10 - Essential (primary) hyp ertension omeprazole 20 mg PO DAILY 30 days 30 caps 0RF I10 - Essential (primary) hypertension Ventolin HFA 90 mcg/actuation (albuterol sulfate) 2 puffs inhalation Q6H 30 days PRN 8 grams 2RF shortness of breath or wheezing NS J45.909 - Unspecified asthma, uncomplicated Patient Instructions: - Restart Lisinopril 10 mg as prescribed. - Ensure regular blood pressure monitoring over the next three weeks. - Arrange mammography and bone density scan appointments. - Focus on reducing smoking and alcohol intake. - Continue vitamin D supplementation as recommended. - Follow up with psychiatric support as needed. - Monitor symptoms and seek medical care if illness exacerbates.
[2024-07-04 12:36] VITALS: BP 150/82; BMI 33.5
== END 2024-07-04 13:13 | disposition home or self-care (01) ==
PROVIDERS: PCP Internal Medicine; Visit Provider Internal Medicine
DX: Z00.00 Encounter for general adult medical examination without abnormal findings (principal); I10 Essential (primary) hypertension; K21.9 Gastro-esophageal reflux disease without esophagitis; Z23 Encounter for immunization

== ENCOUNTER → 2024-07-04 12:33 | Outpatient (BNVA) | payer OTHER, SELFPAY | PROVIDERS: PCP Internal Medicine; Visit Provider Internal Medicine | DX: Z00.00 Encounter for general adult medical examination without abnormal findings (principal); Z23 Encounter for immunization; I10 Essential (primary) hypertension; K21.9 Gastro-esophageal reflux disease without esophagitis | CPT/HCPCS: 90471; 90677; 96127; 99212; 99396 ==

== ENCOUNTER 2024-11-05 11:55 | Outpatient (REF) | payer OTHER, SELFPAY ==
--- NOTE | ~2024-11-05 | MM_ITS ---
EXAMINATION: DXA BONE DENSITY AXIAL HISTORY: Estrogen deficiency TECHNIQUE: Aframe Dual energy absorptiometry (DEXA) of the lumbar spine, total left hip, and femoral neck was performed. COMPARISON: There are no prior studies for comparison. FINDINGS: The bone mineral density of the lumbar spine is 0.927 with a T-score of -2.1, and a Z-score of -0.4. This is indicative of osteopenia. The bone mineral density of the left total hip is 0.730 with a T-score of -2.2, and a Z-score of -0.9. This is indicative of osteopenia. The bone mineral density of the left femoral neck is 0.723 with a T-score of -2.3, and a Z-score of -0.7. This is indicative of osteopenia. FRACTURE RISK: The FRAX index suggests a risk of major osteoporotic fracture of 11.2%, and of hip fracture 3.3%. MM/XR DEXA axial skeleton IMPRESSION: Based on bone mineral density, and according to World Health Organization (WHO) criteria, the diagnosis is consistent with osteopenia. All bone density values are in grams per centimeter squared (g/cm2). Statistically, 68% of repeat scans fall within 1 SD (+/- 0.010 g/cm2 for AP spine L1-L4) and 1 SD (+/- 0.012 g/cm2 for femur total) FRAX is a trademark of the [employer] [place] [facility] [employer], a World Health Organization (WHO) Collaborating Center. Electronically signed by: Omar Joe MD 11/05/2024 01:35 PM EDT
== END 2024-11-05 11:56 | disposition home or self-care (01) ==
LOC: HO.MAMMO 11:55
PROVIDERS: PCP Internal Medicine; Visit Provider Internal Medicine
DX: Z12.31 Encounter for screening mammogram for malignant neoplasm of breast (principal); Z13.820 Encounter for screening for osteoporosis; Z78.0 Asymptomatic menopausal state
CPT/HCPCS: 77063; 77067; 77080

== ENCOUNTER → 2024-11-05 13:00 | Outpatient (BNV) | payer OTHER, SELFPAY | PROVIDERS: PCP Internal Medicine; Visit Provider Radiology Diagnostic Radiology | DX: E28.39 Other primary ovarian failure (principal) | CPT/HCPCS: 77080 ==

== ENCOUNTER 2025-01-02 13:09 | Outpatient (AMB) | payer OTHER, SELFPAY ==
--- NOTE | 2025-01-02 13:22 | MHC.PC.OV ---
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 Accompanied by: Self / Same As Patient Allergies aspirin Allergy (Verified 01/02/25 13:31) Gastrointestinal Upset Medication List - Last Reconciled 01/02/25 by Jeni Estrada MD aluminum hydrox-magnesium carb 254-237.5 mg/5 mL (Gaviscon Extra Strength) 10 mL PO QID blood pressure monitor (Blood Pressure Kit) As directed cholecalciferol (vitamin D3) 25 mcg PO DAILY 90 days diphenhydramine HCl 25 mg PO Q6H PRN famotidine (Pepcid) 20 mg PO BID 7 days hydrocortisone 1% (Anti-Itch (hydrocortisone)) 1 appl topical TID PRN 2 weeks hydroxyzine HCl 25 mg PO BID PRN 30 days lisinopril 10 mg PO DAILY 90 days omeprazole 20 mg PO DAILY 30 days Ventolin HFA 90 mcg/actuation (albuterol sulfate) 2 puffs inhalation Q6H PRN 30 days NS Tobacco use date assessed: 01/02/25 Fall risk assessment: No Falls in past year Last assessed Fall Risk: 01/02/25 Dental Screening Dental Screen Date: 01/02/25 Did you have a dental visit in the last 12 months?: No Did you have a dental problem in the last 6 months where you did not have access to dental care?: No Was dental information given to patient?: Patient has dentist HPI HPI Comments History of Present Illness Details This is a 64-year-old female with essential hypertension, iron-deficiency anemia, mild recurrent major depression, osteopenia and asthma that comes today complaining of fatigue and tiredness as well as epigastric pain that bothers her. Will order upper GI series. Blood pressure well controlled with lisinopril. Denies any active bleeding but CBC will be order. Declines any treatment such as counseling or medications for her mild major depression in which PHQ-9 is 12. Bone density done this year shows osteopenia and she is on calcium with vitamin-D. Has mild persistent asthma and use rescue inhaler less than once a month. [facility] Medical History (Updated 01/02/25 @ 13:42 by Jeni Estrada MD) Osteopenia GERD (gastroesophageal reflux disease) Hypertension Hypovitaminosis D Iron deficiency anemia Right hand pain Surgical History History of total abdominal hysterectomy Family History Father Prostate cancer Mother Breast cancer Diabetes Stroke Brother Myocardial infarction Daughter AIDS Social History Housing: Apartment Alcohol intake: current Alcohol intake frequency: a few times a week Alcohol type: beer Patient Tobacco Use Status: Current someday Tobacco user Tobacco use type: Cigarette Cigarettes Per Day: 1 e-Cigarette/Vaping Use: Never Used Second Hand Smoke Exposure: No service: No Current occupational status: unemployed Cognitive needs: No Hearing needs: No Vision needs: No Questionnaire PHQ-9 Over the last 2 weeks, how often have you been bothered by any of the following problems? 1. Little interest or pleasure in doing things: more than half the days 2. Feeling down, depressed, or hopeless: more than half the days 3. Trouble falling or staying asleep, or sleeping too much: more than half the days 4. Feeling tired or having little energy: more than half the days 5. Poor appetite or overeating: several days 6. Feeling bad about yourself - or that you are a failure or have let yourself or your family down: several days 7. Trouble concentrating on things, such as reading the newspaper or watching television: several days 8. Moving or speaking so slowly that other people could have noticed. Or the opposite - being so fidgety or restless that you have been moving around a lot more than usual: several days 9. Thoughts that you would be better off or of hurting yourself in some way: not at all Total score: 12 Depression Screening Interpretation: Positive Depression Screening Follow-up: Existing condition, Follow-up Visit Requested and Declines treatment Depression Screening Done: Yes 86405 - PHQ-9 Billing: Yes Source: Developed by Drs. Omar Muro, Yohana Massey, Panda Michelle and colleagues, with an educational elza from [employer]. Thrive Questionnaire Date Thrive assessed: 01/02/25 I am a: Patient What is your living situation today?: I have a steady place to live Within the past 12 months, did the food you bought not last and you didn't have the money to get more?: Sometimes True Within the past 12 months, did you worry whether your food would run out before you got money to buy more?: Sometimes True Do you have trouble paying for medicines?: No Do you have trouble getting transportation to medical appointments?: No Do you have trouble paying your heating and electricity bill?: Yes Do you have trouble taking care of your child, family member or friend?: No Do you have trouble with day-to-day activities such as bathing, preparing meals, shopping, managing finances, etc.?: Yes Are you currently unemployed and looking for a job?: Yes Are you interested in more education?: Yes Please select the resources that you would like help with: None Currently or been in a relationship where the following occur: No concerns reported THRIVE Score: 3 AUDIT C Alcohol Use Questionnaire (AUDIT-C) 1. How often do you have a drink containing alcohol?: Monthly or less 2. How many drinks containing alcohol do you have on a typical day when you are drinking?: 1 or 2 3. How often do you have six or more drinks on one occasion?: Never Total Score: 1 Score Reviewed/Action Taken: No NEIDA-7 AMB Questionnaire NEIDA-7 Date NEIDA - 7 assessed: 01/02/25 Feeling nervous, anxious, or on edge: 1 = Several days Not being able to stop or control worryin = Several days Worrying too much about different things: 1 = Several days Trouble relaxin = Several days Being so restless that it is hard to sit still: 1 = Several days Becoming easily annoyed or irritable: 2 = More than half the days Feeling afraid as if something awful might happen: 1 = Several days Total NEIDA-7 score (0-4 normal; 5-9 mild; 10-14 moderate; 15-21 severe): 8 Source: Developed by Drs. Omar Muro, Yohana Massey, Panda Michelle and colleagues, with an educational elza from [employer]. NEIDA-7 Assessment Billing NEIDA-7 Assessment Tool: NEIDA-7 Assessment 49198 Review of Systems Const All systems reviewed & are unremarkable except as noted in HPI and below Card Denies chest pain at rest, Denies chest pain with activity, Denies edema, Denies irregular heart rhythm, Denies claudication, Denies dyspnea, Denies dyspnea on exertion, Denies orthopnea, Denies paroxysmal nocturnal dyspnea and Denies slow heart rate Resp Denies cough, Denies dyspnea and Denies dyspnea on exertion GI Denies abdominal pain, Denies change in bowel habits, Denies excessive flatus, Denies nausea and Denies vomiting Denies urinary incontinence, Denies urinary hesitancy and Denies urinary urgency Musc Denies abnormal gait, Denies atrophy, Denies deformity and Denies limited range of motion Skin/Breast Denies bleeding lesions, Denies changing lesions and Denies rash Neuro Denies abnormal gait and Denies lack of coordination Physical exam (Primary Care) Vital Signs: Last Vital Signs BP 132/80 01/02/25 13:24 BMI result Body Mass Index 32.8 Tobacco/Smoking Status: Tobacco use Status Tobacco use date assessed 01/02/25 01/02/25 13:29 Patient Tobacco Use Status Current someday Tobacco 01/02/25 13:29 Tobacco use type Cigarette 01/02/25 13:29 e-Cigarette/Vaping Use Never Used 01/02/25 13:29 PHQ-9: PHQ-9 Score PHQ-9: Total score 12 01/02/25 13:29 Depression Screening Interpretation: Positive Depression Screening Follow-up: Existing condition, Follow-up Visit Requested and Declines treatment Thrive Assessment: Date of Thrive Assessment Date Thrive assessed 01/02/25 01/02/25 13:29 Currently or been in a relationship where the following occur: No concerns reported Resp Effort & Inspection: normal respiratory effort Auscultation: clear to auscultation bilaterally Cardio Jugular venous distension: no JVD Rate: regular rate Rhythm: regular rhythm Heart sounds: S1 normal heart sound present and S2 normal heart sound present Extrem General: Yes full ROM Coding Level of Care Code Est Pt Level 4 (34801) Complex EM visit Add On G2211 Diagnoses Epigastric pain R10.13 Asthma J45.909 Osteopenia M85.80 Iron deficiency anemia D50.9 Hypertension I10 Mild recurrent major depression F33.0 Additional Codes PHQ-9 - 50169 - PHQ-9 Billing: Yes ([id number]) NEIDA-7 Assessment Billing - NEIDA-7 Assessment Tool: NEIDA-7 Assessment 98763 ([id number]) Time Spent (min) 20 Assessment & Plan Assessment & Plan (1) Epigastric pain: Code(s): R10.13 - Epigastric pain Category: Medical (2) Asthma: Code(s): J45.909 - Unspecified asthma, uncomplicated Category: Medical (3) Osteopenia: Code(s): M85.80 - Other specified disorders of bone density and structure, unspecified site Category: Medical (4) Iron deficiency anemia: Code(s): D50.9 - Iron deficiency anemia, unspecified Category: Medical (5) Hypertension: Code(s): I10 - Essential (primary) hypertension Category: Medical (6) Mild recurrent major depression: Code(s): F33.0 - Major depressive disorder, recurrent, mild Category: Medical Plan For her hypertension continue lisinopril. Blood pressure goal is equal or less than 130/80. CBC will be repeated to check for her anemia. She was advised to look for counseling for her depression but declines. Will order upper GI series for epigastric pain. Use rescue inhaler as needed for asthma. Continue calcium with vitamin-D for her osteopenia repeat DEXA scan 2025. Orders: Orders Vitamin D 25-OH Total Today E55.9 - Vitamin D deficiency, unspecified Vitamin B12 and Folate Today E53.8 - Deficiency of other specified B group vitamins Lipid Panel Today E78.5 - Hyperlipidemia, unspecified Comprehensive Jackson. Panel Fast Today R10.13 - Epigastric pain FL upper GI series Today R10.13 - Epigastric pain Complete Blood Count Auto Diff Today D64.9 - Anemia, unspecified IRON PROFILE Today D64.9 - Anemia, unspecified Medications: Refilled famotidine (Pepcid) 20 mg PO BID 7 days 14 tabs 0RF omeprazole 20 mg PO DAILY 30 days 30 caps 0RF I10 - Essential (primary) hypertension
[2025-01-02 13:24] VITALS: BP 132/80; BMI 32.8
== END 2025-01-02 13:42 | disposition home or self-care (01) ==
LOC: HO.HMCH 13:10
PROVIDERS: PCP Internal Medicine; Visit Provider Internal Medicine
DX: R10.13 Epigastric pain (principal); J45.909 Unspecified asthma, uncomplicated; M85.80 Other specified disorders of bone density and structure, unspecified site; D50.9 Iron deficiency anemia, unspecified; I10 Essential (primary) hypertension; F33.0 Major depressive disorder, recurrent, mild

== ENCOUNTER → 2025-01-02 13:09 | Outpatient (BNVA) | payer OTHER, SELFPAY | PROVIDERS: PCP Internal Medicine; Visit Provider Internal Medicine | DX: R10.13 Epigastric pain (principal); J45.909 Unspecified asthma, uncomplicated; I10 Essential (primary) hypertension; D50.9 Iron deficiency anemia, unspecified; M85.80 Other specified disorders of bone density and structure, unspecified site; F33.0 Major depressive disorder, recurrent, mild; E55.9 Vitamin D deficiency, unspecified; E53.8 Deficiency of other specified B group vitamins; E78.5 Hyperlipidemia, unspecified; Z79.899 Other long term (current) drug therapy | CPT/HCPCS: 96127; 99212 ==

== ENCOUNTER 2025-04-25 09:53 | Outpatient (REF) | payer OTHER, SELFPAY ==
--- NOTE | ~2025-04-25 | FL_ITS ---
EXAMINATION: XR GI SERIES CLINICAL INFORMATION: Epigastric pain COMPARISON: None available. TECHNIQUE: Upright barium swallow was attempted with thick barium. Patient refused to proceed after oral administration of 1 sip of thick barium FINDINGS: Incomplete study as patient refused to proceed after once the popliteal oral administration of thick barium. FLUOROSCOPY TIME: 18 seconds DOSE AREA PRODUCT: 110.8 uGy-m2 (microgray-meter squared) FL/FL upper GI series IMPRESSION: The exam was aborted after oral administration of single sip of thick barium. Perfused to swallow any more barium Electronically signed by: Cody Vargas MD 04/25/2025 11:19 AM EDT
--- OUTSIDE RECORDS SUMMARY | 2025-04-25 11:00 | XMS_ITS | Patient Health Record ---
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 for 1 day(s) 11/08/2013 07/31/2024 Active risperiDONE 3mg Acti ve Colace 100mg Active Amitriptyline HCl 75mg Active QUEtiapine Fumarate 100mg Active Folic Acid 1mg Activ e Problems Problem Type SNOMED Code ICD Code Onset Dates Problem Status W/U Status Risk Notes Problem GI bleeding (73865178) GI bleeding (578.9) Active confirmed Problem Abdominal pain (35522240) Abdominal pain (789.00) Active confirmed Plan Of Treatment Pending Test Test Name Order Date XR BARIUM ENEMA WITH AIR CONTRAST 2013 Future Test Test Name Order Date UPPER GI ENDOSCOPY 11/08/2013 COLONOSCOPY 11/08/2013 Insurance Providers Payer Name Payer Address Payer Phone Subscriber Number Group Number Insured Name Patient Relationship to Insured Coverage Start Date Coverage End Date [facility] [employer] [facility] [address] [address] [place], [place] [phone] [id number] JEREMY MENDOZA Self - patient is the insured MEDICAID OF [facility] [address] [place] [address] [phone] [id number] JEREMY MENDOZA Self - patient is the insured Medical (General) History Medical History History ICD Code Arthritis insomnia anxiety bipolar disorder Denies PR,DM,CVA,Lung disease,renal dise ase Surgical History Surgery Date(Month/Year) AJIT
== END 2025-04-25 09:54 | disposition home or self-care (01) ==
LOC: HO.XRAY 09:53
PROVIDERS: PCP Internal Medicine; Visit Provider Internal Medicine
DX: R10.13 Epigastric pain (principal)
CPT/HCPCS: 74240

== ENCOUNTER → 2025-04-25 09:55 | Outpatient (BNV) | payer OTHER, SELFPAY | PROVIDERS: PCP Internal Medicine; Visit Provider Radiology Diagnostic Radiology | DX: R10.13 Epigastric pain (principal) | CPT/HCPCS: 74240 ==